=== PATIENT | female | born 1960 | race African-American/Black ===

== ENCOUNTER → 2019-10-04 | Outpatient (REF) | payer OTHER, MEDICARE ==
[2019-10-04 20:47] LABS: BASO % 0.5 % (0.0-1.0); EOS # 0.2 10^3/uL (0.0-0.5); EOS % 2.3 % (0.0-3.0); HEMATOCRIT 44.3 % (36.0-47.0); HEMOGLOBIN 13.6 g/dl (12.0-15.5); LYMPH # 2.6 10^3/uL (1.5-5.0); LYMPH % 40.5 % (24.0-44.0); MEAN CORPUSCULAR HEMOGLOBIN 29.8 pg (27.0-33.0); MEAN CORPUSCULAR HGB CONC 30.7 g/dl (32.0-36.5); MEAN CORPUSCULAR VOLUME 97.1 fl (80.0-96.0); MONO # 0.6 10^3/uL (0.0-0.8); MONO % 8.5 % (0.0-5.0); NEUTROPHILS # 3.1 10^3/uL (1.5-8.5); PLATELET COUNT, AUTOMATED 261 10^3/uL (150-450); RED BLOOD COUNT 4.56 10^6/uL (4.00-5.40); WHITE BLOOD COUNT 6.4 10^3/uL (4.0-10.0)
[2019-10-04 20:54] LABS: ALBUMIN 3.5 GM/DL (3.2-5.2); ALT/SGPT 49 U/L (12-78); BILIRUBIN,TOTAL 0.2 MG/DL (0.2-1.0); BLOOD UREA NITROGEN 11 MG/DL (7-18); CALCIUM LEVEL 9.5 MG/DL (8.5-10.1); CARBON DIOXIDE LEVEL 31 MEQ/L (21-32); CHLORIDE LEVEL 104 MEQ/L (98-107); CHOLESTEROL LEVEL 171 MG/DL (<200); CHOLESTEROL RISK RATIO 3.489 (<5); CREATININE FOR GFR 0.82 MG/DL (0.55-1.30); GLOMERULAR FILTRATION RATE > 60.0 (>51); GLUCOSE, FASTING 108 MG/DL (70-100); HDL CHOLESTEROL 49 MG/DL (>40); LDL CHOLESTEROL 93 MG/DL (<100); NON-HDL-C 122 MG/DL; POTASSIUM SERUM 4.1 MEQ/L (3.5-5.1); SODIUM LEVEL 140 MEQ/L (136-145); TOTAL PROTEIN 7.6 GM/DL (6.4-8.2); TRIGLYCERIDES LEVEL 145 MG/DL (<150)
[2019-10-04 21:25] LABS: MALB URINE SIEMENS 11.9 MG/L; MAU/CREAT RATIO 5.1 MCG/MG (0.0-30.0)
[2019-10-04 21:34] LABS: HEMOGLOBIN A1c 7.5 %
== END ==
LOC: M SFHCLERA 14:40
PROVIDERS: ATTEND Nurse Practitioner Family
DX: E11.9 Type 2 diabetes mellitus without complications (principal); E78.2 Mixed hyperlipidemia

== ENCOUNTER → 2020-02-24 | Outpatient (REF) | payer MEDICARE, OTHER ==
[2020-02-24 11:40] LABS: BASO % 0.4 % (0.0-1.0); EOS # 0.1 10^3/uL (0.0-0.5); EOS % 1.5 % (0.0-3.0); HEMATOCRIT 41.1 % (36.0-47.0); HEMOGLOBIN 12.6 g/dl (12.0-15.5); LYMPH # 2.4 10^3/uL (1.5-5.0); LYMPH % 34.2 % (24.0-44.0); MEAN CORPUSCULAR HEMOGLOBIN 30.1 pg (27.0-33.0); MEAN CORPUSCULAR HGB CONC 30.7 g/dl (32.0-36.5); MEAN CORPUSCULAR VOLUME 98.3 fl (80.0-96.0); MONO # 0.5 10^3/uL (0.0-0.8); MONO % 6.8 % (0.0-5.0); NEUTROPHILS % 56.7 % (36.0-66.0); PLATELET COUNT, AUTOMATED 298 10^3/uL (150-450); RED BLOOD COUNT 4.18 10^6/uL (4.00-5.40); WHITE BLOOD COUNT 7.1 10^3/uL (4.0-10.0)
[2020-02-24 11:47] LABS: BLOOD UREA NITROGEN 14 MG/DL (7-18); CALCIUM LEVEL 8.7 MG/DL (8.5-10.1); CARBON DIOXIDE LEVEL 33 MEQ/L (21-32); CHLORIDE LEVEL 104 MEQ/L (98-107); CHOLESTEROL LEVEL 182 MG/DL (<200); CHOLESTEROL RISK RATIO 2.888 (<5); CREATININE FOR GFR 0.85 MG/DL (0.55-1.30); GLOMERULAR FILTRATION RATE > 60.0 (>51); GLUCOSE, FASTING 180 MG/DL (70-100); HDL CHOLESTEROL 63 MG/DL (>40); LDL CHOLESTEROL 96 MG/DL (<100); NON-HDL-C 119 MG/DL; POTASSIUM SERUM 4.4 MEQ/L (3.5-5.1); SODIUM LEVEL 142 MEQ/L (136-145); TRIGLYCERIDES LEVEL 113 MG/DL (<150)
[2020-02-24 12:03] LABS: HEMOGLOBIN A1c 6.5 %
[2020-02-24 12:43] LABS: MALB URINE SIEMENS 11.8 MG/L; MAU/CREAT RATIO 5.2 MCG/MG (0.0-30.0)
== END ==
LOC: M SFHCLERA 09:43
PROVIDERS: ATTEND Family Medicine
DX: E11.9 Type 2 diabetes mellitus without complications (principal); E78.2 Mixed hyperlipidemia

== ENCOUNTER → 2020-05-26 | Outpatient (CLI) | payer OTHER ==
[2020-05-26 19:17] LABS: BASO % 0.3 % (0.0-1.0); EOS # 0.1 10^3/uL (0.0-0.5); EOS % 1.1 % (0.0-3.0); HEMATOCRIT 42.4 % (36.0-47.0); HEMOGLOBIN 13.2 g/dl (12.0-15.5); LYMPH # 2.6 10^3/uL (1.5-5.0); LYMPH % 37.5 % (24.0-44.0); MEAN CORPUSCULAR HEMOGLOBIN 30.6 pg (27.0-33.0); MEAN CORPUSCULAR HGB CONC 31.1 g/dl (32.0-36.5); MEAN CORPUSCULAR VOLUME 98.1 fl (80.0-96.0); MONO # 0.4 10^3/uL (0.0-0.8); MONO % 6.1 % (0.0-5.0); NEUTROPHILS # 3.8 10^3/uL (1.5-8.5); NEUTROPHILS % 54.9 % (36.0-66.0); PLATELET COUNT, AUTOMATED 314 10^3/uL (150-450); RED BLOOD COUNT 4.32 10^6/uL (4.00-5.40)
[2020-05-26 19:25] LABS: ALBUMIN 3.6 GM/DL (3.2-5.2); ALT/SGPT 44 U/L (12-78); BILIRUBIN,TOTAL 0.3 MG/DL (0.2-1.0); BLOOD UREA NITROGEN 13 MG/DL (7-18); CALCIUM LEVEL 9.8 MG/DL (8.5-10.1); CARBON DIOXIDE LEVEL 31 MEQ/L (21-32); CHLORIDE LEVEL 103 MEQ/L (98-107); CREATININE FOR GFR 0.95 MG/DL (0.55-1.30); GLOMERULAR FILTRATION RATE > 60.0 (>51); GLUCOSE, FASTING 131 MG/DL (70-100); LIPASE 122 U/L (73-393); POTASSIUM SERUM 4.2 MEQ/L (3.5-5.1); SODIUM LEVEL 139 MEQ/L (136-145); TOTAL PROTEIN 8.1 GM/DL (6.4-8.2)
== END ==
LOC: M LRY 14:33
PROVIDERS: ATTEND Family Medicine
DX: R10.9 Unspecified abdominal pain (principal)

== ENCOUNTER → 2020-06-13 | Outpatient (CLI) | payer OTHER ==
--- NOTE | 2020-06-20 15:17 | REP ---
LEFT KNEE SERIES CLINICAL: Nontraumatic knee pain. TECHNIQUE: AP, lateral, bilateral oblique, and sunrise views of the left knee. FINDINGS: Frontal radiographs demonstrate increased sclerosis to the tibial plateau with very subtle cortical irregularity at the medial tibiofemoral joint space. Lateral and sunrise views demonstrate spurring and subchondral sclerosis of the patella, as well as increased sclerosis along the anterior patella margin. There is suggestion for a small suprapatellar fusion on lateral radiograph. No acute fracture or dislocation. No obvious healed injury. IMPRESSION: 1. Age-related degenerative changes to the tibiofemoral joint space. 2. Moderate patellar tendinopathy and moderate degenerative changes at the patellofemoral joint space. MTDD
== END ==
LOC: M WUC 17:10
PROVIDERS: ATTEND Family Medicine
DX: M25.562 Pain in left knee (principal)

== ENCOUNTER → 2020-11-05 | Outpatient (CLI) | payer OTHER ==
[~2020-11-05] MED LIST: AMLO1TAB25; ASPI81TA26 PO; ATOR40TA75; CELE1CAP9; CHAN1PAK11; D3 H10002 PO; IRBE300T7; JANU100T; METF-838; NOVOINJ3; OMEG350C PO; OMEP-221; TRAZ-189 PO; TRES1INJ2; colon clenz PO
== END ==
LOC: M LABSMTC 08:42
PROVIDERS: ATTEND Anesthesiology
DX: Z01.812 Encounter for preprocedural laboratory examination (principal); Z20.822 Contact with and (suspected) exposure to COVID-19

== ENCOUNTER → 2020-11-06 | Outpatient (CLI) | payer OTHER ==
--- NOTE | 2020-11-06 17:26 | REPVR ---
PROCEDURE INFORMATION: Exam: US Duplex Left Lower Extremity Veins, Limited Exam date and time: 11/06/2020 5:03 PM Age: 60 years old Clinical indication: Pain; Leg, lower; Left; Additional info: Calf pain lle, labs after US TECHNIQUE: Imaging protocol: Real-time Duplex ultrasound of the Left Lower Extremity with 2-D richard scale, color Doppler flow and spectral waveform analysis with image documentation. Limited exam focused on the left lower extremity veins. COMPARISON: No relevant prior studies available. FINDINGS: Left deep veins: Unremarkable. The common femoral, femoral and popliteal veins are patent without thrombus. Normal compressibility, augmentation response and Doppler waveforms. Left superficial veins: Unremarkable. Saphenofemoral junction is patent without thrombus. Soft tissues: Unremarkable. IMPRESSION: No sonographic evidence of deep vein thrombosis. Electronically signed by: Joel Villalpando On 11/06/2020 17:26:08 PM
[2020-11-06 18:34] LABS: BLOOD UREA NITROGEN 11 MG/DL (7-18); CALCIUM LEVEL 8.9 MG/DL (8.5-10.1); CARBON DIOXIDE LEVEL 32 MEQ/L (21-32); CHLORIDE LEVEL 103 MEQ/L (98-107); CREATININE FOR GFR 0.92 MG/DL (0.55-1.30); GLOMERULAR FILTRATION RATE > 60.0 (>51); GLUCOSE, FASTING 118 MG/DL (70-100); MAGNESIUM LEVEL 1.9 MG/DL (1.8-2.4); POTASSIUM SERUM 4.1 MEQ/L (3.5-5.1); SODIUM LEVEL 141 MEQ/L (136-145)
[2020-11-06 18:39] LABS: HEMOGLOBIN A1c 6.1 %
== END ==
LOC: M RAD 16:52
PROVIDERS: ATTEND Family Medicine
DX: M79.662 Pain in left lower leg (principal); E11.9 Type 2 diabetes mellitus without complications; R25.2 Cramp and spasm; F33.1 Major depressive disorder, recurrent, moderate
CPT/HCPCS: 36415; 80048; 83036; 83735; 90834; 93971; G0463

== ENCOUNTER 2020-11-10 06:52 | Day surgery (SDC) | payer OTHER ==
[~2020-11-10] VITALS: Ht 167.6 cm; Wt 93.9 kg
--- OUTSIDE RECORDS SUMMARY | 2020-11-10 06:57 | CCD ---
Author Author [facility] Organization [facility] Address Unknown Phone Unavailable Care Team Providers Care Nuclear Plant Operator Name Role Phone Ervin Jacqui Unavailable PROBLEMS Type Condition ICD9-CM Code [id number] Code Onset Dates Condition S tatus W/U Status Risk SNOMED Code Notes Problem Arthritis M19.90 Active confirmed 7344780 Problem Depression with anxiety F41.8 Active confirmed 098831895 Problem Mixed hyperlipidemia E78.2 Active confirmed 140981765 Problem Type 2 diabetes mellitus without complications E11 .9 Active confirmed 298998681 Problem Insomnia, unspecified type G47.00 Active confirmed 193842632 Problem 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 Active confirmed 748569930 Problem 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 Z79.4 Activ e confirmed 395669302 Problem Major depressive disorder, recurrent, moderate F33 .1 Active confirmed 261542758 Problem FELIX (obstructive sleep apnea) G47.33 Active confirm ed 71610843 Problem Hypertension, unspecified type I10 Active confir med 43998866 Problem Arthritis of left knee M17.12 Active confirmed 8058560879859193 Problem History of colon cancer Z85.038 Active confirmed 491132237 Problem Cigarette nicotine dependence without complication F17.210 Active confirmed 74569141 ALLERGIES No Known Allergies ENCOUNTERS from 1960 to 2020-11-08 Encounter Location Date Provider Diagnosis [facility] [address] [address] 15 Oct, 2020 Jacqui Mueller Major depressive disorder, r ecurrent, moderate F33.1 IMMUNIZATIONS Vaccine Route Administration Date Status Imm: Influenza Pharmacy Given Unknown Jun 21, 2019 Ad ministered SOCIAL HISTORY Tobacco Use: Social History Observation Description Date Details (start date - stop date) Current Smoker Sex Assigned At : Social History Observation Description Sex Assigned At Unknown Education: Question Answer Notes Level of Education: High School Audit Question Answer Notes Total Score: 3 Interpretation: Alcohol Education Language: Question Answer Notes Languages spoken: Thai Jew: Question Answer Notes Jew 14 Islam Sexual Hx: Question Answer Notes Had sex in the last 12 months (vaginal, oral, or anal)? Yes Have you ever had an STD? Yes with Men only Use protection? No Herpes? Yes Drug and Alcohol Question Answer Notes Total Score: 0 Interpretation: No problems reported Alcohol Screening: Question Answer Notes Did you have a drink containing alcohol in the past year? Ye s Points 3 Interpretation Positive How often did you have six or more drinks on one occas ion in the past year? Never (0 points) How many drinks did you have on a typica l day when you were drinking in the past year? 3 or 4 (1 point) How often did you have a drink containing alcohol in t he past year? Two to four times a month (2 points) BMI Care Goal Follow-Up Question Answer Notes Above Normal BMI Follow-Up Dietary management educatio n, guidance, and counseling, Dietary needs education Tobacco Use: Question Answer Notes Are you a: current smoker REASON FOR REFERRAL No Information VITAL SIGNS No information MEDICATIONS Medication SIG (Take, Route, Frequency, Duration) Notes Start Da te End Date Status Blood Pressure Kit - as directed Daily Dx: I 10 for 999 days Jul, Active Albuterol Sulfate HFA 108 (90 Base) MCG/ACT 1 puff as needed Inhalation every 4 hrs for 30 Days Sep, Active Atorvastatin Calcium 40 MG 1 tablet Orally Once a day for 90 days Active Januvia 100 MG 1 tablet Orally Once a day for 90 days Active [place] 3 1000 MG 2 capsule Orally bid for 90 day(s) Active TraZODone HCl 100 MG 2 tablet at bedtime Orally Once a day for 90 day s Active Irbesartan 300 MG 1 tablet Orally Once a day for 90 days Active AmLODIPine Besylate 10 MG TAKE 1 TABLET EVERY DAY for 90 Active MetFORMIN HCl ER 500 MG TAKE 1 TABLET TWICE DAILY for 90 Active NovoLog Flexpen 100 UNIT/ML 10 units Subcutaneous three time s daily for 90 days Active Aspir-Low 81 MG 1 tablet Orally Once a day for 30 day(s) Active Diclofenac Sodium 1 % as directed to hands Transde rmal 2g up to Four times a day for 30 Days Sep, Active May Have - as directed Daily for 999 days Oct, Active Metformin HCl 1000 MG 1 tablet with a meal Orally Once a day for 30 day(s) Feb, Active Blood Glucose Test - as directed In Vitro once daily for 90 day( s) Oct, Active Chantix Starting Month Anatoly 0.5 MG X 11 & 1 MG X 42 as directed Orally as directed for 30 days Jul, Active Tresiba FlexTouch 100 UNIT/ML INJECT 35 UNITS SUBCUTAN EOUSLY EVERY EVENING for 85 Active Citalopram Hydrobromide 10 MG TAKE 1 TABLET EVERY DAY for 90 Active Celecoxib 200 MG 1 capsule with food Orally Once a day for 90 da y(s) Sep, Active PROCEDURES No Information RESULTS No Results REASON FOR VISIT No Information MEDICAL (GENERAL) HISTORY Type Description Date Medical History Diabetes Medical History HTN, goal 140/90 Medical History Anxiety/depression Medical History Insomnia Medical History Arthritis Medical History Hyperlipidemia Medical History FELIX Surgical History ankle Surgical History bilat foot surgery 2006 2009 Surgical History colon surgery 2017 Hospitalization History surgery Goals Section No Information Health Concerns No Information MEDICAL EQUIPMENT No Information MENTAL STATUS No Information FUNCTIONAL STATUS No Information ASSESSMENTS Encounter Date Diagnosis Assessment Notes Treatment Notes Treatm ent Clinical Notes Oct, Major depressive disorder, recurrent, moderate ( ICD-10 - F33.1) Aliya attended scheduled follow up appointment. Aliya presents for treatment with increased depressive symptoms and reports history of depression. Aliya denies SI, SH, HI, AVH. Aliya is active and engaged throughout session. Discussed presenting symptoms and efforts to manage identified symptoms, discussed positive future goals. Aliya is scheduled fdor follow up appointment 11/27/20 at 1pm via ZOOM, aware to call for earlier appointment if needed. email: [email or web address] Aliya is aware to call for earlier appointment if needed and to use ER for mental health emergencies. PLAN OF TREATMENT Medication Medication Name Sig Start Date Stop Date NovoLog Flexpen 100 UNIT/ML 10 units Subcutaneous three time s daily for 90 days Tresiba FlexTouch 100 UNIT/ML INJECT 35 UNITS SUBCUTAN EOUSLY EVERY EVENING for 85 MetFORMIN HCl ER 500 MG TAKE 1 TABLET TWICE DAILY for 90 AmLODIPine Besylate 10 MG TAKE 1 TABLET EVERY DAY for 90 Irbesartan 300 MG 1 tablet Orally Once a day for 90 days Blood Pressure Kit - as directed Daily Dx: I 10 for 999 days Jul,January Have - as directed Daily for 999 days Oct, TraZODone HCl 100 MG 2 tablet at bedtime Orally Once a day for 9 0 days Chantix Starting Month Anatoly 0.5 MG X 11 & 1 MG X 42 as directed Orally as directed for 30 days Jul, Citalopram Hydrobromide 10 MG TAKE 1 TABLET EVERY DAY for 90 Treatment Notes Assessment Notes Clinical Notes Major depressive disorder, recurrent, moderate Aliya attended scheduled follow up appointment. Aliya presents for treatment with increased depressive symptoms and reports history of depression. Aliya denies SI, SH, HI, AVH. Aliya is active and engaged throughout session. Discussed presenting symptoms and efforts to manage identified symptoms, discussed positive future goals.Aliya is scheduled fdor follow up appointment 11/27/20 at 1pm via ZOOM, aware to call for earlier appointment if needed.email: [email or web address] is aware to call for earlier appointment if needed and to use ER for mental health emergencies. Next Appt Details Provider Name:Alanis Meek, 2020-11-14 10:00:00 AM, [address] [place], [address], Provider Name:Jacqui Mueller, 2020-11-27 01:00:00 PM, [address], [address] Insurance Providers Payer Name Payer Address Payer Phone Insured Name Patient Relati onship to Insured Coverage Start Date Coverage End Date SHELIA [place] [address] [address] [facility] [phone] ALIYA MCGUIRE self
--- OUTSIDE RECORDS SUMMARY | 2020-11-10 06:58 | CCD ---
Author Author [facility] Organization [facility] Address Unknown Phone Unavailable Care Team Providers Care Furniture Servicer Name Role Phone Pratik Bowens Unavailable PROBLEMS Type Condition ICD9-CM Code [id number] Code Onset Dates Condition S tatus SNOMED Code Notes Problem Arthritis M19.90 Active 0666153 Problem Depression with anxiety F41.8 Active 03864296 6 Problem Mixed hyperlipidemia E78.2 Active 894331262 Problem Type 2 diabetes mellitus without complications E11 .9 Active 268992165 Problem Insomnia, unspecified type G47.00 Active 46841 2001 Problem 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 Active 414762254 Problem shelter (current) use of insulin Z79.4 Activ e 728429068 Problem Major depressive disorder, recurrent, moderate F33 .1 Active 238395059 Problem FELIX (obstructive sleep apnea) G47.33 Active 78 977578 Problem Hypertension, unspecified type I10 Active 5 4860896 Problem Arthritis of left knee M17.12 Active 403111628 1578391 Problem History of colon cancer Z85.038 Active 84569080 9 Problem Cigarette nicotine dependence without complication F17.210 Active 09892984 ALLERGIES No Known Allergies ENCOUNTERS from 1960 to 2020-10-20 Encounter Location Date Provider Diagnosis [facility] [address] [place] [address], Pratik Bowens Insomnia, unspecified type G47.00 IMMUNIZATIONS Vaccine Route Administration Date Status Influenza (Pharmacy Given) Unknown Jun 21, 2019 Admin istered SOCIAL HISTORY Tobacco Use: Social History Observation Description Date Details (start date - stop date) Current Smoker Sex Assigned At : Social History Observation Description Sex Assigned At Unknown Education: Question Answer Notes Level of Education: High School Audit Question Answer Notes Total Score: 3 Interpretation: Alcohol Education Language: Question Answer Notes Languages spoken: Persian Restorationism: Question Answer Notes Restorationism 14 Quaker Sexual Hx: Question Answer Notes Had sex [...] Notes Start Da te End Date Status NovoLog Flexpen 100 UNIT/ML 10 units Subcutaneous three time s daily for 90 days Active Atorvastatin Calcium 40 MG 1 tablet Orally Once a day for 90 days Active Tresiba FlexTouch 100 UNIT/ML 40 units Subcutaneous before b edtime for 90 days Active Metformin HCl 1000 MG 1 tablet with a meal Orally Once a day for 30 day(s) Feb, Active Irbesartan 300 MG 1 tablet Orally Once a day for 90 days Active Januvia 100 MG 1 tablet Orally Once a day for 90 days Active MetFORMIN HCl ER 500 MG TAKE 1 TABLET TWICE DAILY for 90 Active Blood Glucose Test - as directed In Vitro once daily for 90 day( s) Oct, Active AmLODIPine Besylate 10 MG TAKE 1 TABLET EVERY DAY for 90 Active Celecoxib 200 MG 1 capsule with food Orally Once a day for 90 da y(s) Sep, Active TraZODone HCl 100 MG 2 tablet at bedtime Orally Once a day for 90 day s Active Diclofenac Sodium 1 % as directed to hands Transde rmal 2g up to Four times a day for 30 Days Sep, Active Blood Pressure Kit - as directed Daily Dx: I 10 for 999 days Jul, Active Chantix Starting Month Anatoly 0.5 MG X 11 & 1 MG X 42 as directed Orally as directed for 30 days Jul, Active Albuterol Sulfate HFA 108 (90 Base) MCG/ACT 1 puff as needed Inhalation every 4 hrs for 30 Days Sep, Active Citalopram Hydrobromide 10 MG TAKE 1 TABLET EVERY DAY for 90 Active Aspir-Low 81 MG 1 tablet Orally Once a day for 30 day(s) Active [place] 3 1000 MG 2 capsule Orally bid for 90 day(s) Active PROCEDURES No Information RESULTS No Results REASON FOR VISIT Refill MEDICAL (GENERAL) HISTORY Type Description Date Medical History Diabetes Medical History HTN, goal 140/90 Medical History Anxiety/depression Medical History Insomnia Medical History Arthritis Medical History Hyperlipidemia Medical History FELIX Surgical History ankle Surgical History bilat foot surgery 2006 2009 Surgical History colon surgery 2016 Hospitalization History surgery Goals Section No Information Health Concerns No Information MEDICAL EQUIPMENT No Information MENTAL STATUS No Information FUNCTIONAL STATUS No Information ASSESSMENTS Encounter Date Diagnosis Assessment Notes Treatment Notes Treatm ent Clinical Notes Sep, Insomnia, unspecified type (ICD-10 - G47.00) PLAN OF TREATMENT Medication Medication Name Sig Start Date Stop Date AmLODIPine Besylate 10 MG TAKE 1 TABLET EVERY DAY for 90 Citalopram Hydrobromide 10 MG TAKE 1 TABLET EVERY DAY for 90 Chantix Starting Month Anatoly 0.5 MG X 11 & 1 MG X 42 as directed Orally as directed for 30 days Jul, MetFORMIN HCl ER 500 MG TAKE 1 TABLET TWICE DAILY for 90 Blood Pressure Kit - as directed Daily Dx: I 10 for 999 days Jul, TraZODone HCl 100 MG 2 tablet at bedtime Orally Once a day for 9 0 days Irbesartan 300 MG 1 tablet Orally Once a day for 90 days Next Appt Details Provider Name:Jacqui Mueller, 2020-11-06 01:00:00 PM, [address] [address], [place], [address] Provider Name:Pratik Bowens, 2020-11-06 02:00:00 PM, [address] [place], [address], Provider Name:Alanis Meek, 2020-11-14 10:00:00 AM, [address] [place], [address], Insurance Providers Payer Name Payer Address Payer Phone Insured Name Patient Relati onship to Insured Coverage Start Date Coverage End Date [place]ASH[place]ee [place] [address] [address] [facility] [id number] THOMAS NAPIER
--- OUTSIDE RECORDS SUMMARY | 2020-11-10 06:58 | CCD ---
Author Author [facility] Organization [facility] Address Unknown Phone Unavailable Care Team Providers Care Bobbin Presser Name Role Phone Pratik Bowens Unavailable PROBLEMS Type Condition ICD9-CM Code [id number] Code Onset Dates Condition S tatus SNOMED Code Notes Problem Arthritis M19.90 Active 5726831 Problem Depression with anxiety F41.8 Active 69543543 6 Problem Mixed hyperlipidemia E78.2 Active 778505176 Problem Type 2 diabetes mellitus without complications E11 .9 Active 769194210 Problem Insomnia, unspecified type G47.00 Active 27356 2001 Problem 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 Active 441142639 Problem [facility] (current) use of insulin Z79.4 Activ e 324653442 Problem Major depressive disorder, recurrent, moderate F33 .1 Active 810248200 Problem FELIX (obstructive sleep apnea) G47.33 Active 78 740088 Problem Hypertension, unspecified type I10 Active 5 1649269 Problem Arthritis of left knee M17.12 Active 751734842 2406011 Problem History of colon cancer Z85.038 Active 42716922 9 Problem Cigarette nicotine dependence without complication F17.210 Active 16464040 ALLERGIES No Known Allergies ENCOUNTERS from 1960 to 2020-09-05 Encounter Location Date Provider Diagnosis [facility] [address] [place] [address] Aug, Pratik Bowens IMMUNIZATIONS Vaccine Route Administration Date Status Influenza [...] Education Language: Question Answer Notes Languages spoken: Khmer Shinto: Question Answer Notes Shinto 14 Jew Sexual Hx: Question Answer Notes Had sex [...] Once a day for 90 days Active Metformin HCl 1000 MG 1 tablet with a meal Orally Once a day for 30 day(s) Feb, Active Tresiba FlexTouch 100 UNIT/ML 40 units Subcutaneous before b edtime for 90 days Active Aspir-Low 81 MG 1 tablet Orally Once a day for 30 day(s) Active Januvia 100 MG 1 tablet Orally Once a day for 90 days Active Diclofenac Sodium 1 % as directed to hands Transde rmal 2g up to Four times a day for 30 Days Sep, Active AmLODIPine Besylate 10 MG 1 tablet Orally Once a day for 90 days Active Albuterol Sulfate HFA 108 (90 Base) MCG/ACT 1 puff as needed Inhalation every 4 hrs for 30 Days Sep, Active Celecoxib 200 MG 1 capsule with food Orally Once a day for 90 da y(s) Sep, Active TraZODone HCl 100 MG 2 tablet at bedtime Orally Once a day for 90 day s Active Blood Pressure Kit - as directed Daily Dx: I 10 for 999 days Jul, Active Chantix Starting Month Anatoly 0.5 MG X 11 & 1 MG X 42 as directed Orally as directed for 30 days Jul, Active Irbesartan 300 MG 1 tablet Orally Once a day for 90 days Active Blood Glucose Test - as directed In Vitro once daily for 90 day( s) Oct, Active Citalopram Hydrobromide 10 MG 1 tablet Orally Once a day for 90 day(s) Sep, Active [place] 3 1000 MG 2 capsule Orally bid for 90 day(s) Active PROCEDURES No Information RESULTS No Results REASON FOR VISIT transfer paperwork MEDICAL (GENERAL) HISTORY Type Description Date Medical [...] No Information FUNCTIONAL STATUS No Information ASSESSMENTS No Information PLAN OF TREATMENT Medication Medication Name Sig Start Date Stop Date Blood Pressure Kit - as directed Daily Dx: I 10 for 999 days Jul, Chantix Starting Month Anatoly 0.5 MG X 11 & 1 MG X 42 as directed Orally as directed for 30 days Jul, Next Appt Details Provider Name:Alanis Fantasma, 2020-09-11 02:20:00 PM, [address] [place], [address], Provider Name:Jacqui Mueller, 2020-09-26 01:00:00 PM, [address], [address] Provider Name:Pratik Bowens, 2020-11-06 02:00:00 PM, [address] [place], [address], Insurance Providers Payer Name Payer Address Payer Phone Insured Name Patient Relati onship to Insured Coverage Start Date Coverage End Date SHELIA [place] [address] [address] [facility] [phone] [phone] THOMAS MCGUIRE
--- OUTSIDE RECORDS SUMMARY | 2020-11-10 06:58 | CCD ---
Author Author [facility] Organization [facility] Address Unknown Phone Unavailable Care Team Providers Care Yard Supervisor Name Role Phone Pratik Bowens Unavailable PROBLEMS Type Condition ICD9-CM Code [id number] Code Onset Dates Condition S tatus SNOMED Code Notes Problem Arthritis M19.90 Active 9484151 Problem Depression with anxiety F41.8 Active 41409865 6 Problem Mixed hyperlipidemia E78.2 Active 831119248 Problem Type 2 diabetes mellitus without complications E11 .9 Active 898565343 Problem Insomnia, unspecified type G47.00 Active 18761 2001 Problem 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 Active 012337386 Problem long-term (current) use of insulin Z79.4 Activ e 142441380 Problem Major depressive disorder, recurrent, moderate F33 .1 Active 726950330 Problem FELIX (obstructive sleep apnea) G47.33 Active 78 649389 Problem Hypertension, unspecified type I10 Active 5 1663822 Problem Arthritis of left knee M17.12 Active 921542859 4437844 Problem History of colon cancer Z85.038 Active 23619681 9 Problem Cigarette nicotine dependence without complication F17.210 Active 96627756 ALLERGIES No Known Allergies ENCOUNTERS from 1960 to 2020-10-19 Encounter Location Date Provider Diagnosis [facility] [place] [address] Sep Pratik Bowens Hypertension, unspecified type I10 IMMUNIZATIONS Vaccine Route Administration Date Status Influenza [...] Education Language: Question Answer Notes Languages spoken: Bulgarian Rastafari: Question Answer Notes Rastafari 14 Zoroastrian Sexual Hx: Question Answer Notes Had sex [...] Once a day for 30 day(s) Active Elliott 3 1000 MG 2 capsule Orally bid for 90 day(s) Active PROCEDURES No Information RESULTS No Results REASON FOR VISIT rx MEDICAL (GENERAL) HISTORY Type Description Date Medical [...] Treatment Notes Treatm ent Clinical Notes Sep, Hypertension, unspecified type (ICD-10 - I10) PLAN OF TREATMENT Medication Medication Name Sig [...] Details Provider Name:Jacqui Mueller, 2020-11-06 01:00:00 PM, [address] [address], [place], [address] Provider Name:Pratik Bowens, 2020-11-06 02:00:00 PM, [address] [place], [address], Provider Name:Alanis Meek, 2020-11-14 10:00:00 AM, [address] [place], [address], Insurance Providers Payer Name Payer Address Payer Phone Insured Name Patient Relati onship to Insured Coverage Start Date Coverage End Date SHE[place]IA [place] [address] [address] [facility] [phone] THOMAS NAPIER
--- OUTSIDE RECORDS SUMMARY | 2020-11-10 06:58 | CCD | Continuity of Care Document ---
Author Author Aliya HWANG [facility] Organization Unknown Address [address] [place] [address], [address] [place] [address] Phone [phone] Care Team Providers Care Cloth Piecer Name Role Phone Gogo Pratik Dao AUTM [phone] Problems Active Problems Provider Date Essential hypertension Onset: 09/26/2020 Social History Type Date Description Comments Sex Unknown ETOH Use 3 A Week Tobacco Use Start: Unknown Light tobacco smoker (10 or fewe r cigarettes/day) 5 Cigs daily Tobacco Use Start: Unknown Report Cessation Counseling Was Provided Allergies, Adverse Reactions, Alerts Description No Known Drug Allergies Medications Active Medications SIG Qnty Indications Ordering Provide r Date Suprep Bowel Prep Kit 17.5-3.13-1.6GM/177ML Solution take per doctor's bowel prep instructions. 354ml Z12.1 1 Zackery Cooper MD 10/11/[address] take 4 tabs by mouth prior to procedure per instructions. 4tabs Z12.11 Zackery Cooper MD 10/11/2020 Miralax 17GM/Scoop Powder take 17 grams by mouth once daily. 510units K59.00 Zackery Cooper MD 10/11/2020 Celebrex 200mg Capsules 1 by mouth every day prn Unknown Vitamin D 2000Unit Tablets 1 tab by mouth every day Unknown Omeprazole 20mg Capsules DR take 1 capsule by mouth once daily. 30caps Unknown Tresiba 100Unit/ML Solution 40 units at hs Unknown Novolog Penfill 100U nit/ML Solution Cartridge 10 units with each meal Unknown Amlodipine Besylate 10mg Tablets 1 by mouth every day Unknown Trazodone HCL 100mg Tablets 2 at hs Unknown Januvia 100mg Tablets 1 by mouth every day Unknown Irbesartan 300mg Tablets 1 Da shan Unknown Metformin HCL 500mg Tablets 1 Daily Unknown Atorvastatin Calcium 40mg Tablets 1 by mouth every day Unknown Centrum Adults Tablets Daily Unknown Colon Clenz 1 Daily Unknown Aspirin [address] take 1 tab by mouth daily Unknown [place] 3 1000mg Capsules 2 by mouth twice daily Unknown Immunizations Description No Information Available Vital Signs Date Vital Result Comment 10/11/2020 2:13pm BP Systolic 122 mmHg BP Diastolic 82 mmHg Height 66 inches 5'6" Weight 214.00 lb BMI (Body Mass Index) 34.5 kg/m2 [place] Body Weight 130 lb Weight 97.070 kg BSA (Body Surface Area) 2.06 m2 Results Description No Information Available Procedures Description No Information Available Medical Devices Description No Information Available Encounters Description No Information Available Assessments Date Code Description Provider 10/11/2020 Z12.11 Encounter for screening for molly gnant neoplasm of colon Isabella Ashrafkyleigh [facility] 10/11/2020 Z86.010 Personal history of colonic poly ps Isabella Nuñezhafsa [facility] 10/11/2020 Z80.0 Family history of malignant neop lasm of digestive organs Isabella NuñezILDEFONSO pereyra 10/11/2020 K59.00 Constipation, unspecified Meliss anju Nuñezhafsa [facility] 10/11/2020 K21.9 Gastro-esophageal reflux disease without esophagitis Isabella Ashrafkyleigh [facility] Plan of Treatment 10/11/2020 - Isabella Price Key [facility]* Z12.11 Encounter for screening for malignant neoplasm of colon * Z86.010 Personal history of colonic polyps * Z80.0 Family history of malignant neoplasm of digestive organs * K59.00 Constipation, unspecified * K21.9 Gastro-esophageal reflux disease without esophagitis * * New Medication:* Suprep Bowel Prep Kit 17.5-3.13-1.6 GM/177ML * Dulcolax 5 mg * New Orders:* Colonoscopy, Ordered: 10/11/20 * Comments:* Will arrange for upper endoscopy and colonoscopy. Reviewed risks and benefits of the procedures, as well as other options, with the patient. Prep for this procedure was discussed with patient, including risks and side effects associated with the prep. Patient verbalized understanding of all of the above and is in agreement to proceed. Patient will seek medical attention for any acute changes. Will monitor. * Follow up:* As scheduled, sooner if needed. Functional Status Description No Information Available Mental Status Description No Information Available Referrals Refer to Reason for Referral Status Appt Date Marcio Azul M.D. colo consult, has not had r epeat colo since GI cancer removed in 2017, sent records release Created 10/11/[address] [place] [address], [address] [place] [address] [phone]
--- OUTSIDE RECORDS SUMMARY | 2020-11-10 06:58 | CCD ---
Author Author [facility] Organization [facility] Address Unknown Phone Unavailable Care Team Providers Care Consulting Hr Professional Name Role Phone Pratik Bowens Unavailable PROBLEMS Type Condition ICD9-CM Code [id number] Code Onset Dates Condition S tatus W/U Status Risk SNOMED Code Notes Problem Arthritis M19.90 Active confirmed 3256379 Problem Depression with anxiety F41.8 Active confirmed 247338887 Problem Mixed hyperlipidemia E78.2 Active confirmed 040326855 Problem Type 2 diabetes mellitus without complications E11 .9 Active confirmed 859412821 Problem Insomnia, unspecified type G47.00 Active confirmed 716657739 Problem 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 Active confirmed 170759655 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 Activ e confirmed 384755619 Problem Major depressive disorder, recurrent, moderate F33 .1 Active confirmed 781365833 Problem FELIX (obstructive sleep apnea) G47.33 Active confirm ed 80021439 Problem Hypertension, unspecified type I10 Active confir med 50767755 Problem Arthritis of left knee M17.12 Active confirmed 4828172073297198 Problem History of colon cancer Z85.038 Active confirmed 565791814 Problem Cigarette nicotine dependence without complication F17.210 Active confirmed 97749203 ALLERGIES No Known Allergies ENCOUNTERS from 1960 to 2020-11-08 Encounter Location Date Provider Diagnosis [facility] [address] [place] [address], Pratik Bowens IMMUNIZATIONS Vaccine Route Administration Date Status Imm: [...] Education Language: Question Answer Notes Languages spoken: Salvadorean Episcopalian: Question Answer Notes Episcopalian 14 Moravian Sexual Hx: Question Answer Notes Had sex [...] Once a day for 90 days Active [place] 3 1000 MG 2 capsule Orally bid [...] Information RESULTS No Results REASON FOR VISIT US MEDICAL (GENERAL) HISTORY Type Description Date Medical [...] Dx: I 10 for 999 days Jul, May Have - as directed Daily for 999 days Oct, TraZODone HCl 100 MG 2 tablet at bedtime Orally Once a day for 9 0 days Chantix Starting Month Anatoly 0.5 MG X 11 & 1 MG X 42 as directed Orally as directed for 30 days Jul, Citalopram Hydrobromide 10 MG TAKE 1 TABLET EVERY DAY for 90 Next Appt Details Provider Name:Alanis Meek, 2020-11-14 10:00:00 AM, [address] [place], [address], Provider Name:Jacqui Mueller, 2020-11-27 01:00:00 PM, [address], [address], [place], [address] Insurance Providers Payer Name Payer Address Payer Phone Insured Name Patient Relati onship to Insured Coverage Start Date Coverage End Date BASHIR NAN [address] [address] [facility] [phone] THOMAS NAPIER self
--- OUTSIDE RECORDS SUMMARY | 2020-11-10 06:58 | CCD ---
Author Author [facility] Organization [facility] Address Unknown Phone Unavailable Care Team Providers Care Saw Sharpener Name Role Phone Pratik Bowens Unavailable PROBLEMS Type Condition ICD9-CM Code [id number] Code Onset Dates Condition S tatus SNOMED Code Notes Problem Arthritis M19.90 Active 4667683 Problem Depression with anxiety F41.8 Active 34701213 6 Problem Mixed hyperlipidemia E78.2 Active 703517198 Problem Type 2 diabetes mellitus without complications E11 .9 Active 545713672 Problem Insomnia, unspecified type G47.00 Active 17718 2000 Problem 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 Active 421858245 Problem 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 Z79.4 Activ e 185832247 Problem Major depressive disorder, recurrent, moderate F33 .1 Active 135326559 Problem FELIX (obstructive sleep apnea) G47.33 Active 78 806074 Problem Hypertension, unspecified type I10 Active 5 7601668 Problem Arthritis of left knee M17.12 Active 040795687 1933342 Problem History of colon cancer Z85.038 Active 93596829 9 Problem Cigarette nicotine dependence without complication F17.210 Active 27789793 ALLERGIES No Known Allergies ENCOUNTERS from 1960 to 2020-09-05 Encounter Location Date Provider Diagnosis [facility] [address] [place] [address] Jul, 2020 Pratik Bowens Hypertension, unspecified type I10 ; Enc ounter for immunization Z23 ; Arthritis of left knee M17.12 ; History of colon cancer Z85.038 ; Encounter for screening mammogram for malignant neoplasm of breast Z12.31 ; Screening for cervical cancer Z12.4 and Cigarette nicotine dependence without complication F17.210 IMMUNIZATIONS Vaccine Route Administration Date Status Influenza [...] Education Language: Question Answer Notes Languages spoken: Tongan Amish: Question Answer Notes Amish 14 Quaker Sexual Hx: Question Answer Notes [...] REASON FOR REFERRAL No Information VITAL SIGNS Weight 211 lbs Jul, Height 66 in Jul, BMI 34.05 kg/m2 Jul, Heart Rate 75 /min Jul, Respiratory Rate 18 /min Jul, Temperature 97.2 degrees Fahrenheit Jul, Oximetry 99 Jul, Blood pressure systolic 146 mm Hg Jul, Blood pressure diastolic 83 mm Hg Jul, MEDICATIONS Medication SIG (Take, Route, Frequency, Duration) [...] a day for 90 day(s) Sep, Active [place] 3 1000 MG 2 capsule Orally bid for 90 day(s) Active PROCEDURES No Information RESULTS No Results REASON FOR VISIT follow up MEDICAL (GENERAL) HISTORY Type Description Date Medical [...] Notes Treatment Notes Treatm ent Clinical Notes Jul, Hypertension, unspecified type (ICD-10 - I10) Recommend check BP at home. Sending in for a BP cuff at home. May not be covered by insurance. Jul, Encounter for immunization (ICD-10 - Z23) Already had flu shot this season. Jul, Arthritis of left knee (ICD-10 - M17.12) Refer to PT. Patient has pain in knees. Discussed stretching to do at home. Would like to try PT. Can send to ortho if no relief with PT. Jul, History of colon cancer (ICD-10 - Z85.038) Refer to GI. Patient needs to discuss repeat/ monitoring colonoscopy. Jul, Encounter for screening mamm ogram for malignant neoplasm of breast (ICD-10 - Z12.31) Mammogram, provider order, patient will call to make appt. Jul, Screening for cervical cancer (ICD-10 - Z12.4) refer to [facility] for pap smear. Jul, Cigarette nicotine dependenc e without complication (ICD-10 - F17.210) Start chantix for quit smoking. Reviewed side effects. PLAN OF TREATMENT Medication Medication Name Sig Start Date Stop Date Blood Pressure Kit - as directed Daily Dx: I 10 for 999 days Jul, Chantix Starting Month Anatoly 0.5 MG X 11 & 1 MG X 42 as directed Orally as directed for 30 days Jul, Treatment Notes Assessment Notes Clinical Notes Hypertension, unspecified type Recommend check BP at home. Sending in for a BP cuff at home. May not be covered by insurance. Encounter for immunization Already had f roger shot this season. Arthritis of left knee Refer to PT. Ana Maria ent has pain in knees. Discussed stretching to do at home. Would like to try PT. Can send to ortho if no relief with PT. History of colon cancer Refer to GI. Pat ient needs to discuss repeat/ monitoring colonoscopy. Encounter for screening mammogram for malignant neoplasm of breast Mammogram, provider order, patient will call to make appt. Screening for cervical cancer refer to [facility] for pap smear. Cigarette nicotine dependence without complication Start chantix for quit smoking. Reviewed side effects. Treatment Notes Test Name Order Date [facility] Shashi Screening Bilateral (Ultrasound if Indicated ) (3D Mammo) 2020-09-05 Next Appt Details Follow up with PCP in 3 mths/ Transfer c are Reason: Provider Name:Alanis Meek, 2020-09-11 02:20:00 PM, [address] [place], [address], Provider Name:Jacqui Mueller, 2020-09-26 01:00:00 PM, [address], [address] Provider Name:Pratik Bowens, 2020-11-06 02:00:00 PM, [address] [place], [address], Insurance Providers Payer Name Payer Address Payer Phone Insured Name Patient Relati onship to Insured Coverage Start Date Coverage End Date [place]IA [place] [address] [address] [facility] [id number] THOMAS NAPIER
--- OUTSIDE RECORDS SUMMARY | 2020-11-10 06:58 | CCD ---
Author Author [facility] Organization [facility] Address Unknown Phone Unavailable Care Team Providers Care Biofuels Technology Development Manager Name Role Phone Pratik Bowens Unavailable PROBLEMS Type Condition ICD9-CM Code [id number] Code Onset Dates Condition S tatus SNOMED Code Notes Problem Arthritis M19.90 Active 1515407 Problem Depression with anxiety F41.8 Active 05677617 6 Problem Mixed hyperlipidemia E78.2 Active 690257019 Problem Type 2 diabetes mellitus without complications E11 .9 Active 412789604 Problem Insomnia, unspecified type G47.00 Active 42159 2001 Problem 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 Active 146966844 Problem [facility] (current) use of insulin Z79.4 Activ e 564557499 Problem Major depressive disorder, recurrent, moderate F33 .1 Active 253515637 Problem FELIX (obstructive sleep apnea) G47.33 Active 78 125493 Problem Hypertension, unspecified type I10 Active 5 4353737 Problem Arthritis of left knee M17.12 Active 125234198 7902351 Problem History of colon cancer Z85.038 Active 08975595 9 Problem Cigarette nicotine dependence without complication F17.210 Active 49847308 ALLERGIES No Known Allergies ENCOUNTERS from 1960 to 2020-10-02 Encounter Location Date Provider Diagnosis [facility] [address] [place] [address] Sep, Pratik Bowens FELIX (obstructive sleep apnea) G47.33 IMMUNIZATIONS Vaccine Route Administration Date Status Influenza [...] Education Language: Question Answer Notes Languages spoken: Bengali Episcopal: Question Answer Notes Episcopal 14 Episcopal Sexual Hx: Question Answer Notes Had sex [...] Notes Start Da te End Date Status Atorvastatin Calcium 40 MG 1 tablet Orally Once a day for 90 days Active [place] 3 1000 MG 2 capsule Orally bid for 90 day(s) Active Tresiba FlexTouch 100 UNIT/ML 40 units Subcutaneous before b edtime for 90 days Active Chantix Starting Month Anatoly 0.5 MG X 11 & 1 MG X 42 as directed Orally as directed for 30 days Jul, Active NovoLog Flexpen 100 UNIT/ML 10 units Subcutaneous three time s daily for 90 days Active Januvia 100 MG [...] day for 90 da y(s) Sep, Active Metformin HCl 1000 MG 1 tablet with a meal Orally Once a day for 30 day(s) Feb, Active Diclofenac Sodium 1 % as directed to hands Transde rmal 2g up to Four times a day for 30 Days Sep, Active Irbesartan 300 MG 1 tablet Orally Once a day for 90 days Active TraZODone HCl 100 MG 2 tablet at bedtime Orally Once a day for 90 day s Active Albuterol Sulfate HFA 108 (90 Base) MCG/ACT 1 puff as needed Inhalation every 4 hrs for 30 Days Sep, Active Citalopram Hydrobromide 10 MG TAKE 1 TABLET EVERY DAY for 90 Active Aspir-Low 81 MG 1 tablet Orally Once a day for 30 day(s) Active Blood Pressure Kit - as directed Daily Dx: I 10 for 999 days Jul, Active PROCEDURES No Information RESULTS No Results REASON FOR VISIT Referral MEDICAL (GENERAL) HISTORY Type Description Date Medical [...] Treatment Notes Treatm ent Clinical Notes Sep, FELIX (obstructive sleep apnea) (ICD-10 - G47.33) PLAN OF TREATMENT Medication Medication Name Sig [...] Dx: I 10 for 999 days Jul, Next Appt Details Provider Name:Alanis Meek, 2020-10-24 02:40:00 PM, [address] [place], [address], Provider Name:Pratik Bowens, 2020-11-06 02:00:00 PM, [address] [place], [address], Insurance Providers Payer Name Payer Address Payer Phone Insured Name Patient Relati onship to Insured Coverage Start Date Coverage End Date SHELIA [place] [facility] [id number] [place] [phone] THOMAS NAPIER
--- OUTSIDE RECORDS SUMMARY | 2020-11-10 06:58 | CCD ---
Author Author [facility] Organization [facility] Address Unknown Phone Unavailable Care Team Providers Care Manager Express Name Role Phone Jacqui Mueller Unavailable PROBLEMS Type Condition ICD9-CM Code [id number] Code Onset Dates Condition S tatus SNOMED Code Notes Problem Arthritis M19.90 Active 7419980 Problem Depression with anxiety F41.8 Active 88148989 6 Problem Mixed hyperlipidemia E78.2 Active 641377706 Problem Type 2 diabetes mellitus without complications E11 .9 Active 462851145 Problem Insomnia, unspecified type G47.00 Active 54859 2001 Problem 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 Active 596379050 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 Activ e 550276226 Problem Major depressive disorder, recurrent, moderate F33 .1 Active 705210796 Problem FELIX (obstructive sleep apnea) G47.33 Active 78 921507 Problem Hypertension, unspecified type I10 Active 5 2644966 Problem Arthritis of left knee M17.12 Active 804923709 6399764 Problem History of colon cancer Z85.038 Active 93927237 9 Problem Cigarette nicotine dependence without complication F17.210 Active 50044200 ALLERGIES No Known Allergies ENCOUNTERS from 1960 to 2020-08-30 Encounter Location Date Provider Diagnosis [facility] [address] [address] Aug, 2020 Jacqui Mueller Major depressive disorder, r ecurrent, moderate F33.1 IMMUNIZATIONS Vaccine Route Administration Date Status Influenza [...] Education Language: Question Answer Notes Languages spoken: Kinyarwanda Latter-Day: Question Answer Notes Latter-Day 14 Yazdanism Sexual Hx: Question Answer Notes Had sex in the last 12 months (vaginal, oral, or anal)? Yes Have you ever had an STD? Yes with Men only Use protection? No Herpes? Yes Drug and Alcohol Question Answer Notes Interpretation: No problems reported Total Score: 0 Alcohol Screening: Question Answer Notes Did you [...] a day for 90 day(s) Sep, Active [place] 3 1000 MG 2 capsule Orally bid [...] Notes Treatment Notes Treatm ent Clinical Notes Aug, Major depressive disorder, recurrent, moderate ( ICD-10 - F33.1) Aliya attended scheduled follow up appointment. Aliya presents for treatment with increased depressive symptoms and reports history of depression. Aliya denies SI, SH, HI, AVH. Aliya is active and engaged throughout session. Discussed presenting symptoms and efforts to manage identified symptoms, discussed boundaries and self care. Aliya is scheduled for follow up appointment 09/26/2020 at 1PM. Aliya is aware to call for earlier [...] Jul, Treatment Notes Assessment Notes Clinical Notes Major depressive disorder, recurrent, moderate Aliya attended scheduled follow up appointment. Aliya presents for treatment with increased depressive symptoms and reports history of depression. Aliya denies SI, SH, HI, AVH. Aliya is active and engaged throughout session. Discussed presenting symptoms and efforts to manage identified symptoms, discussed boundaries and self care. Aliya is scheduled for follow up appointment 09/26/2020 at 1PM. Aliya is aware to call for earlier appointment if needed and to use ER for mental health emergencies. Next Appt Details Provider Name:Alanis Meek, 2020-09-11 02:20:00 PM, [address] [place], [address], Provider Name:Jacqui Mueller, 2020-09-26 01:00:00 PM, [address], [address] Provider Name:Pratik Bowens, 2020-11-06 02:00:00 PM, [address] [place], [address], Insurance Providers Payer Name Payer Address Payer Phone Insured Name Patient Relati onship to Insured Coverage Start Date Coverage End Date [place] [address] [address] [facility] [phone] ALIYA MCGUIRE self
--- OUTSIDE RECORDS SUMMARY | 2020-11-10 06:58 | CCD ---
Author Author [facility] Organization [facility] Address Unknown Phone Unavailable Care Team Providers Care Personal Banking Assistant Name Role Phone Pratik Bowens Unavailable PROBLEMS Type Condition ICD9-CM Code [id number] Code Onset Dates Condition S tatus SNOMED Code Notes Problem Arthritis M19.90 Active 1325021 Problem Depression with anxiety F41.8 Active 87243890 6 Problem Mixed hyperlipidemia E78.2 Active 975664617 Problem Type 2 diabetes mellitus without complications E11 .9 Active 331203526 Problem Insomnia, unspecified type G47.00 Active 30993 2001 Problem 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 Active 750090171 Problem correction (current) use of insulin Z79.4 Activ e 156488424 Problem Major depressive disorder, recurrent, moderate F33 .1 Active 177963579 Problem FELIX (obstructive sleep apnea) G47.33 Active 78 768354 Problem Hypertension, unspecified type I10 Active 5 2485620 Problem Arthritis of left knee M17.12 Active 995776538 0768315 Problem History of colon cancer Z85.038 Active 79416186 9 Problem Cigarette nicotine dependence without complication F17.210 Active 29884344 ALLERGIES No Known Allergies ENCOUNTERS from 1960 to 2020-09-28 Encounter Location Date Provider Diagnosis [facility] [address] [place] [address] Sep, Pratik Bowens IMMUNIZATIONS Vaccine Route Administration Date [...] Education Language: Question Answer Notes Languages spoken: Setswana Moravian: Question Answer Notes Moravian 14 Sikh Sexual Hx: Question Answer Notes Had sex [...] a day for 90 day(s) Sep, Active [place] 3 1000 MG 2 capsule Orally bid for 90 day(s) Active PROCEDURES No Information RESULTS No Results REASON FOR VISIT endoscopy MEDICAL (GENERAL) HISTORY Type Description Date Medical [...] Provider Name:Alanis Meek, 2020-10-24 02:40:00 PM, [address] [place], [address], Provider Name:Pratik Bowens, 2020-11-06 02:00:00 PM, [address] [place], [address], Insurance Providers Payer Name Payer Address Payer Phone Insured Name Patient Relati onship to Insured Coverage Start Date Coverage End Date SHE[place]IA [place] [address] [address] [facility] [phone] THOMAS MCGUIRE
--- OUTSIDE RECORDS SUMMARY | 2020-11-10 06:58 | CCD ---
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 Name Role Phone Pratik Bowens Unavailable PROBLEMS Type Condition ICD9-CM Code [id number] Code Onset Dates Condition S tatus W/U Status Risk SNOMED Code Notes Problem Arthritis M19.90 Active confirmed 4501192 Problem Depression with anxiety F41.8 Active confirmed 477966148 Problem Mixed hyperlipidemia E78.2 Active confirmed 199818260 Problem Type 2 diabetes mellitus without complications E11 .9 Active confirmed 302659328 Problem Insomnia, unspecified type G47.00 Active confirmed 623423429 Problem 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 Active confirmed 579829459 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 Activ e confirmed 068795170 Problem Major depressive disorder, recurrent, moderate F33 .1 Active confirmed 499250156 Problem FELIX (obstructive sleep apnea) G47.33 Active confirm ed 86222699 Problem Hypertension, unspecified type I10 Active confir med 37390163 Problem Arthritis of left knee M17.12 Active confirmed [id number] Problem History of colon cancer Z85.038 Active confirmed 618714383 Problem Cigarette nicotine dependence without complication F17.210 Active confirmed 35652547 ALLERGIES No Known Allergies ENCOUNTERS from 1960 to 2020-10-27 Encounter Location Date Provider Diagnosis [facility] [address] [place] [address], Pratik Bowens IMMUNIZATIONS Vaccine Route Administration Date Status Influenza (Pharmacy Given) Unknown Jun 21, 2019 Admin istered SOCIAL HISTORY Tobacco Use: Social History Observation Description Date Details (start date - stop date) Current Smoker Sex Assigned At : Social History Observation Description Sex Assigned At Unknown Education: Question Answer Notes Level of Education: High School Audit Question Answer Notes Interpretation: Alcohol Education Total Score: 3 Language: Question Answer Notes Languages spoken: Occitan Mandaeism: Question Answer Notes Mandaeism 14 Taoist Sexual Hx: Question Answer Notes Had sex [...] a day for 30 Days Sep, Active Keyser 3 1000 MG 2 capsule Orally bid for 90 day(s) Active May Have - as directed Daily for 999 days Oct, Active Irbesartan 300 MG 1 tablet Orally Once a day for 90 days Active AmLODIPine Besylate 10 MG TAKE 1 TABLET EVERY DAY for 90 Active MetFORMIN HCl ER 500 MG TAKE 1 TABLET TWICE DAILY for 90 Active NovoLog Flexpen 100 UNIT/ML 10 units Subcutaneous three time s daily for 90 days Active Chantix Starting Month Anatoly 0.5 MG X 11 & 1 MG X 42 as directed Orally as directed for 30 days Jul, Active Aspir-Low 81 MG 1 tablet Orally Once a day for 30 day(s) Active Citalopram Hydrobromide 10 MG TAKE 1 TABLET EVERY DAY for 90 Active TraZODone HCl 100 MG 2 tablet at bedtime Orally Once a day for 90 day s Active Januvia 100 MG 1 tablet Orally Once a day for 90 days Active Metformin HCl 1000 MG 1 tablet with a meal Orally Once a day for 30 day(s) Feb, Active Tresiba FlexTouch 100 UNIT/ML INJECT 35 UNITS SUBCUTAN EOUSLY EVERY EVENING for 85 Active Blood Glucose Test - as directed In Vitro once daily for 90 day( s) Oct, Active Celecoxib 200 MG 1 capsule with [...] Dx: I 10 for 999 days Jul, Citalopram Hydrobromide 10 MG TAKE 1 TABLET EVERY DAY for 90 May Have - as directed Daily for 999 days Oct, TraZODone HCl 100 MG 2 tablet at bedtime Orally Once a day for 9 0 days Chantix Starting Month Anatoly 0.5 MG X 11 & 1 MG X 42 as directed Orally as directed for 30 days Jul, Next Appt Details Provider Name:Jacqui Mueller, 2020-11-06 01:00:00 PM, [address] [facility], [facility] [address], [place], [address] Provider Name:Pratik Bowens, 2020-11-06 02:00:00 PM, [address] [place], [address], Provider Name:Alanis Fantasma, 2020-11-14 10:00:00 AM, [address] [place], [address], Insurance Providers Payer Name Payer Address Payer Phone Insured Name Patient Relati onship to Insured Coverage Start Date Coverage End Date [facility] [address] [address] [facility] [id number] THOMAS NAPIER
--- OUTSIDE RECORDS SUMMARY | 2020-11-10 06:58 | CCD ---
Author Author [facility] Organization [facility] Address Unknown Phone Unavailable Care Team Providers Care Marketing Services Specialist Name Role Phone Pratik Bowens Unavailable PROBLEMS Type Condition ICD9-CM Code [id number] Code Onset Dates Condition S tatus W/U Status Risk SNOMED Code Notes Problem Arthritis M19.90 Active confirmed 7888415 Problem Depression with anxiety F41.8 Active confirmed 268804268 Problem Mixed hyperlipidemia E78.2 Active confirmed 205494206 Problem Type 2 diabetes mellitus without complications E11 .9 Active confirmed 376587254 Problem Insomnia, unspecified type G47.00 Active confirmed 764064034 Problem 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 Active confirmed 131477057 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 Activ e confirmed 212062608 Problem Major depressive disorder, recurrent, moderate F33 .1 Active confirmed 407623922 Problem FELIX (obstructive sleep apnea) G47.33 Active confirm ed 10435044 Problem Hypertension, unspecified type I10 Active confir med 96477062 Problem Arthritis of left knee M17.12 Active confirmed 3963041556202345 Problem History of colon cancer Z85.038 Active confirmed 157063582 Problem Cigarette nicotine dependence without complication F17.210 Active confirmed 94187564 ALLERGIES No Known Allergies ENCOUNTERS from 1962 to 2020-10-26 Encounter Location Date Provider Diagnosis [facility] [address] [place] [address] Oct, Pratik Bowens IMMUNIZATIONS Vaccine Route Administration [...] Education Language: Question Answer Notes Languages spoken: Croatian Confucianism: Question Answer Notes Confucianism 14 Mormonism Sexual Hx: Question Answer Notes Had sex [...] a day for 30 Days Sep, Active [place] 3 1000 MG 2 capsule Orally bid [...] Details Provider Name:Jacqui Mueller, 2020-11-06 01:00:00 PM, [address] [facility], [facility] [address], [place], [address] Provider Name:Pratik Bowens, 2020-11-06 02:00:00 PM, [address] [place], [address], Provider Name:Alanis Fantasma, 2020-11-14 10:00:00 AM, [address] [place], [address], Insurance Providers Payer Name Payer Address Payer Phone Insured Name Patient Relati onship to Insured Coverage Start Date Coverage End Date [facility] [address] [address] [facility] [id number] THOMAS NAPIER
--- OUTSIDE RECORDS SUMMARY | 2020-11-10 06:59 | CCD ---
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 Name Role Phone Alan VALDEZ DPM Unavailable Unavailable Alan VALDEZ DPM Unavailable Unavailable Alan VALDEZ DPM Unavailable Unavailable Alan VALDEZ DPM Unavailable Unavailable Alan VALDEZ DPM Unavailable Unavailable Alan VALDEZ DPM Unavailable Unavailable Alan VALDEZ DPM Unavailable Unavailable Alan VALDEZ DPM Unavailable Unavailable Alan VALDEZ DPM Unavailable Unavailable Alan VALDEZ DPM Unavailable Unavailable Alan VALDEZ DPM Unavailable Unavailable Alan VALDEZ DPM Unavailable Unavailable Alan VALDEZ DPM Unavailable Unavailable MAJAlan IBARRAW DPM Unavailable Unavailable Alan VALDEZW DPM Unavailable Unavailable Alan VALDEZW DPM Unavailable Unavailable Alan VALDEZ DPM Unavailable Unavailable Alan VALDEZW DPM Unavailable Unavailable Alan VALDEZ DPM Unavailable Unavailable Alan VALDEZW DPM Unavailable Unavailable Alan VALDEZW DPM Unavailable Unavailable Alan VALDEZW DPM Unavailable Unavailable Alan VALDEZW DPM Unavailable Unavailable Alan VALDEZW DPM Unavailable Unavailable Alan VALDEZW DPM Unavailable Unavailable Alan VALDEZW DPM Unavailable Unavailable Alan VALDEZ EMMA DPM Unavailable Unavailable Alan VALDEZ EMMA DPM Unavailable Unavailable Alan VALDEZ EMMA DPM Unavailable Unavailable Alan VALDEZ EMMA DPM Unavailable Unavailable Re-disclosure Warning The records that you are about to access may contain information from federally-assisted alcohol or drug abuse programs. If such information is present, then the following federally mandated warning applies: This information has been disclosed to you from records protected by federal confidentiality rules (42 CFR part 2). The federal rules prohibit you from making any further disclosure of this information unless further disclosure is expressly permitted by the written consent of the person to whom it pertains or as otherwise permitted by 42 CFR part 2. A general authorization for the release of medical or other information is NOT sufficient for this purpose. The Federal rules restrict any use of the information to criminally investigate or prosecute any alcohol or drug abuse patient.The records that you are about to access may contain highly sensitive health information, the redisclosure of which is protected by Article 27-F of the [facility] Public Health law. If you continue you may have access to information: Regarding HIV / AIDS; Provided by facilities licensed or operated by the [facility] Office of Mental Health; or Provided by the [facility] Office for People With Developmental Disabilities. If such information is present, then the following [facility] mandated warning applies: This information has been disclosed to you from confidential records which are protected by state law. State law prohibits you from making any further disclosure of this information without the specific written consent of the person to whom it pertains, or as otherwise permitted by law. Any unauthorized further disclosure in violation of state law may result in a fine or penitentiary sentence or both. A general authorization for the release of medical or other information is NOT sufficient authorization for further disc losure. Encounters Encounter Providers Location Date Indications Data Source(s ) ([facility]) [facility] Scheduled Visit [address] [place] [address] 11/06/2020 12:00:00 AM EST eCW1 ([facility]) Unknown [address] [facility] [id number] 11/06/2020 12:00:00 AM EST eCW1 ([facility]) Unknown [address] [facility] [address] 10/25/2020 12:00:00 AM EST eCW1 ([facility]) Unknown [address] [facility] [address] 10/23/2020 12:00:00 AM EST eCW1 ([facility]) [place] [address] [facility] [address] 10/19/2020 12:00:00 AM EST eCW1 ([facility]) Unknown [address] [facility] [place] [address] 10/18/2020 12:00:00 AM EST eCW1 ([facility]) [place] [address] [facility] [address] 09/29/2020 12:00:00 AM EST eCW1 ([facility]) Unknown [address] [facility] [place] [address] 09/26/2020 12:00:00 AM EST eCW1 ([facility]) Unknown [address] [facility] [place] [address] 08/31/2020 12:00:00 AM EST eCW1 ([facility]) ([facility]) [facility] Scheduled Visit [address] [place] [phone] 08/29/2020 12:00:00 AM EST eCW1 ([facility]) Outpatient [address] [facility] [place] [address] 08/07/2020 12:00:00 AM EST eCW1 ([facility]) Outpatient [address] [facility] [place] [address] 08/07/2020 12:00:00 AM EST eCW1 ([facility]) Unknown [address] [facility] [place] [address] 06/22/2020 12:00:00 AM EDT eCW1 ([facility]) Unknown [address] [facility] [place] [address] 06/20/2020 12:00:00 AM EDT eCW1 [facility] Outpatient Attender: EMMA VALDEZ [facility] Office 02/20 10:15:00 AM EDT MEDENT ([facility] [place] [address] [facility] [address] 02/24/2020 12:00:00 AM EDT eCW1 ([facility]) [facility] [address] [facility] [address] 12/14/2019 12:00:00 AM EDT eCW1 ([facility]) [facility] [address] [facility] [address] 12/13/2019 12:00:00 AM EDT eCW1 ([facility]) [facility] [address] [facility] [address] 12/13/2019 12:00:00 AM EDT eCW1 ([facility]) [facility] [address] [facility] [address] 12/03/2019 12:00:00 AM EDT eCW1 ([facility]) [facility] [address] [facility] [address] 11/16/2019 12:00:00 AM EST eCW1 ([facility]) [facility] [address] [facility] [address] 10/07/2019 12:00:00 AM EST eCW1 ([facility]) [facility] [address] [facility] [address] 10/04/2019 12:00:00 AM EST eCW1 ([facility]) Medications Medication Brand Name Start Date Product Form Dose Route Admi nistrative Instructions Pharmacy Instructions Status Indications Reaction Description Data Source(s) May Have - UNK 10/25/2020 12:00:00 AM EST active May Have - eCW1 ([facility]) May Have - UNK 10/25/2020 12:00:00 AM EST active May Have - eCW1 ([facility]) May Have - UNK 10/25/2020 12:00:00 AM EST active May Have - eCW1 ([facility]) May Have - UNK 10/25/2020 12:00:00 AM EST active May Have - eCW1 ([facility]) Suprep Bowel Prep Kit Suprep Bowel Prep Kit 10/11/2020 12:00:00 AM EST active MEDENT ([facility], ) POLYETHYLENE GLYCOL 3350 142 MG/ML Oral Solution [Miralax] M iralax 10/11/2020 12:00:00 AM EST ORAL active M EDENT ([facility], ) Bisacodyl 5 MG Delayed Release Oral Tablet [Dulcolax] Dulcol ax 10/11/2020 12:00:00 AM EST ORAL active M EDENT ([facility], ) Chantix Starting Month Anatoly 0.5 MG X 11 & 1 MG X 42 Abeba ntix Starting Month Anatoly 0.5 MG X 11 & 1 MG X 42 08/07/2020 12:00:00 AM EST active Chantix Starting Month Anatoly 0.5 MG X 11 & 1 MG X 42 eCW1 ([facility]) Blood Pressure Kit - Blood Pressure Kit - 08/07/2020 12:00:00 AM EST active Blood Pressure Kit - eCW1 ([facility]) Chantix Starting Month Anatoly 0.5 MG X 11 & 1 MG X 42 Abeba ntix Starting Month Anatoly 0.5 MG X 11 & 1 MG X 42 08/07/2020 12:00:00 AM EST active Chantix Starting Month Anatoly 0.5 MG X 11 & 1 MG X 42 eCW1 ([facility]) Chantix Starting Month Anatoly 0.5 MG X 11 & 1 MG X 42 Abeba ntix Starting Month Anatoly 0.5 MG X 11 & 1 MG X 42 08/07/2020 12:00:00 AM EST active Chantix Starting Month Anatoly 0.5 MG X 11 & 1 MG X 42 eCW1 ([facility]) Chantix Starting Month Anatoly 0.5 MG X 11 & 1 MG X 42 Abeba ntix Starting Month Anatoly 0.5 MG X 11 & 1 MG X 42 08/07/2020 12:00:00 AM EST active Chantix Starting Month Anatoly 0.5 MG X 11 & 1 MG X 42 eCW1 ([facility]) Blood Pressure Kit - Blood Pressure Kit - 08/07/2020 12:00:00 AM EST active Blood Pressure Kit - eCW1 ([facility]) Blood Pressure Kit - Blood Pressure Kit - 08/07/2020 12:00:00 AM EST active Blood Pressure Kit - eCW1 ([facility]) Blood Pressure Kit - Blood Pressure Kit - 08/07/2020 12:00:00 AM EST active Blood Pressure Kit - eCW1 ([facility]) Chantix Starting Month Anatoly 0.5 MG X 11 & 1 MG X 42 Abeba ntix Starting Month Anatoly 0.5 MG X 11 & 1 MG X 42 08/07/2020 12:00:00 AM EST active Chantix Starting Month Anatoly 0.5 MG X 11 & 1 MG X 42 eCW1 ([facility]) Chantix Starting Month Anatoly 0.5 MG X 11 & 1 MG X 42 Abeba ntix Starting Month Anatoly 0.5 MG X 11 & 1 MG X 42 08/07/2020 12:00:00 AM EST active Chantix Starting Month Anatoly 0.5 MG X 11 & 1 MG X 42 eCW1 ([facility]) Blood Pressure Kit - Blood Pressure Kit - 08/07/2020 12:00:00 AM EST active Blood Pressure Kit - eCW1 ([facility]) Blood Pressure Kit - Blood Pressure Kit - 08/07/2020 12:00:00 AM EST active Blood Pressure Kit - eCW1 ([facility]) Chantix Starting Month Anatoly 0.5 MG X 11 & 1 MG X 42 Abeba ntix Starting Month Anatoly 0.5 MG X 11 & 1 MG X 42 08/07/2020 12:00:00 AM EST active Chantix Starting Month Anatoly 0.5 MG X 11 & 1 MG X 42 eCW1 ([facility]) Blood Pressure Kit - Blood Pressure Kit - 08/07/2020 12:00:00 AM EST active Blood Pressure Kit - eCW1 ([facility]) Chantix Starting Month Anatoly 0.5 MG X 11 & 1 MG X 42 Abeba ntix Starting Month Anatoly 0.5 MG X 11 & 1 MG X 42 08/07/2020 12:00:00 AM EST active Chantix Starting Month Anatoly 0.5 MG X 11 & 1 MG X 42 eCW1 ([facility]) Blood Pressure Kit - Blood Pressure Kit - 08/07/2020 12:00:00 AM EST active Blood Pressure Kit - eCW1 ([facility]) Blood Pressure Kit - Blood Pressure Kit - 08/07/2020 12:00:00 AM EST active Blood Pressure Kit - eCW1 ([facility]) Blood Pressure Kit - Blood Pressure Kit - 08/07/2020 12:00:00 AM EST active Blood Pressure Kit - eCW1 ([facility]) Chantix Starting Month Anatoly 0.5 MG X 11 & 1 MG X 42 Abeba ntix Starting Month Anatoly 0.5 MG X 11 & 1 MG X 42 08/07/2020 12:00:00 AM EST active Chantix Starting Month Anatoly 0.5 MG X 11 & 1 MG X 42 eCW1 ([facility]) Chantix Starting Month Anatoly 0.5 MG X 11 & 1 MG X 42 Abeba ntix Starting Month Anatoly 0.5 MG X 11 & 1 MG X 42 08/07/2020 12:00:00 AM EST active Chantix Starting Month Anatoly 0.5 MG X 11 & 1 MG X 42 eCW1 ([facility]) Blood Pressure Kit - Blood Pressure Kit - 08/07/2020 12:00:00 AM EST active Blood Pressure Kit - eCW1 ([facility]) Chantix Starting Month Anatoly 0.5 MG X 11 & 1 MG X 42 Abeba ntix Starting Month Anatoly 0.5 MG X 11 & 1 MG X 42 08/07/2020 12:00:00 AM EST active Chantix Starting Month Anatoly 0.5 MG X 11 & 1 MG X 42 eCW1 ([facility]) Blood Pressure Kit - Blood Pressure Kit - 08/07/2020 12:00:00 AM EST active Blood Pressure Kit - eCW1 ([facility]) Chantix Starting Month Anatoly 0.5 MG X 11 & 1 MG X 42 Abeba ntix Starting Month Anatoly 0.5 MG X 11 & 1 MG X 42 08/07/2020 12:00:00 AM EST active Chantix Starting Month Anatoly 0.5 MG X 11 & 1 MG X 42 eCW1 ([facility]) ammonium lactate 120 MG/ML Topical Cream Ammonium Lactate 03/09/2020 12:00:00 AM EDT active MEDENT ([facility] Metformin hydrochloride 1000 MG Oral Tablet Metformin HCl 1000 MG Metformin HCl 1000 MG 02/24/2020 12:00:00 AM EDT 1.0 {tablet_with_a_meal} active Metformin HCl 1000 MG eCW1 ([facility]) Metformin hydrochloride 1000 MG Oral Tablet Metformin HCl 1000 MG Metformin HCl 1000 MG 02/24/2020 12:00:00 AM EDT 1.0 {tablet_with_a_meal} active Metformin HCl 1000 MG eCW1 ([facility]) Metformin hydrochloride 1000 MG Oral Tablet Metformin HCl 1000 MG Metformin HCl 1000 MG 02/24/2020 12:00:00 AM EDT 1.0 {tablet_with_a_meal} active Metformin HCl 1000 MG eCW1 ([facility]) Metformin hydrochloride 1000 MG Oral Tablet Metformin HCl 1000 MG Metformin HCl 1000 MG 02/24/2020 12:00:00 AM EDT 1.0 {tablet_with_a_meal} active Metformin HCl 1000 MG eCW1 ([facility]) Metformin hydrochloride 1000 MG Oral Tablet Metformin HCl 1000 MG Metformin HCl 1000 MG 02/24/2020 12:00:00 AM EDT 1.0 {tablet_with_a_meal} active Metformin HCl 1000 MG eCW1 ([facility]) Metformin hydrochloride 1000 MG Oral Tablet Metformin HCl 1000 MG Metformin HCl 1000 MG 02/24/2020 12:00:00 AM EDT 1.0 {tablet_with_a_meal} active Metformin HCl 1000 MG eCW1 ([facility]) Metformin hydrochloride 1000 MG Oral Tablet Metformin HCl 1000 MG Metformin HCl 1000 MG 02/24/2020 12:00:00 AM EDT 1.0 {tablet_with_a_meal} active Metformin HCl 1000 MG eCW1 ([facility]) Metformin hydrochloride 1000 MG Oral Tablet Metformin HCl 1000 MG Metformin HCl 1000 MG 02/24/2020 12:00:00 AM EDT 1.0 {tablet_with_a_meal} active Metformin HCl 1000 MG eCW1 ([facility]) Metformin hydrochloride 1000 MG Oral Tablet Metformin HCl 1000 MG Metformin HCl 1000 MG 02/24/2020 12:00:00 AM EDT 1.0 {tablet_with_a_meal} active Metformin HCl 1000 MG eCW1 ([facility]) Metformin hydrochloride 1000 MG Oral Tablet Metformin HCl 1000 MG Metformin HCl 1000 MG 02/24/2020 12:00:00 AM EDT 1.0 {tablet_with_a_meal} active Metformin HCl 1000 MG eCW1 ([facility]) Metformin hydrochloride 1000 MG Oral Tablet Metformin HCl 1000 MG Metformin HCl 1000 MG 02/24/2020 12:00:00 AM EDT 1.0 {tablet_with_a_meal} active Metformin HCl 1000 MG eCW1 ([facility]) Metformin hydrochloride 1000 MG Oral Tablet Metformin HCl 1000 MG Metformin HCl 1000 MG 02/24/2020 12:00:00 AM EDT 1.0 {tablet_with_a_meal} active Metformin HCl 1000 MG eCW1 ([facility]) Metformin hydrochloride 1000 MG Oral Tablet Metformin HCl 1000 MG Metformin HCl 1000 MG 02/24/2020 12:00:00 AM EDT 1.0 {tablet_with_a_meal} active Metformin HCl 1000 MG eCW1 ([facility]) Metformin hydrochloride 1000 MG Oral Tablet Metformin HCl 1000 MG Metformin HCl 1000 MG 02/24/2020 12:00:00 AM EDT 1.0 {tablet_with_a_meal} active Metformin HCl 1000 MG eCW1 ([facility]) Metformin hydrochloride 1000 MG Oral Tablet Metformin HCl 1000 MG Metformin HCl 1000 MG 02/24/2020 12:00:00 AM EDT 1.0 {tablet_with_a_meal} active Metformin HCl 1000 MG eCW1 ([facility]) Blood Glucose Test - Blood Glucose Test - 11/16/2019 12:00:00 AM EST active Blood Glucose Test - eCW1 ([facility]) Blood Glucose Test - Blood Glucose Test - 11/16/2019 12:00:00 AM EST active Blood Glucose Test - eCW1 ([facility]) Blood Glucose Test - Blood Glucose Test - 11/16/2019 12:00:00 AM EST active Blood Glucose Test - eCW1 ([facility]) Blood Glucose Test - Blood Glucose Test - 11/16/2019 12:00:00 AM EST active Blood Glucose Test - eCW1 ([facility]) Blood Glucose Test - Blood Glucose Test - 11/16/2019 12:00:00 AM EST active Blood Glucose Test - eCW1 ([facility]) Blood Glucose Test - Blood Glucose Test - 11/16/2019 12:00:00 AM EST active Blood Glucose Test - eCW1 ([facility]) Blood Glucose Test - Blood Glucose Test - 11/16/2019 12:00:00 AM EST active Blood Glucose Test - eCW1 ([facility]) Blood Glucose Test - Blood Glucose Test - 11/16/2019 12:00:00 AM EST active Blood Glucose Test - eCW1 ([facility]) Blood Glucose Test - Blood Glucose Test - 11/16/2019 12:00:00 AM EST active Blood Glucose Test - eCW1 ([facility]) Blood Glucose Test - Blood Glucose Test - 11/16/2019 12:00:00 AM EST active Blood Glucose Test - eCW1 ([facility]) Blood Glucose Test - Blood Glucose Test - 11/16/2019 12:00:00 AM EST active Blood Glucose Test - eCW1 ([facility]) Blood Glucose Test - Blood Glucose Test - 11/16/2019 12:00:00 AM EST active Blood Glucose Test - eCW1 ([facility]) Blood Glucose Test - Blood Glucose Test - 11/16/2019 12:00:00 AM EST active Blood Glucose Test - eCW1 ([facility]) Blood Glucose Test - Blood Glucose Test - 11/16/2019 12:00:00 AM EST active Blood Glucose Test - eCW1 ([facility]) Blood Glucose Test - Blood Glucose Test - 11/16/2019 12:00:00 AM EST active as directed eCW1 ([facility]) Blood Glucose Test - Blood Glucose Test - 11/16/2019 12:00:00 AM EST active Blood Glucose Test - eCW1 ([facility]) Diclofenac Sodium 0.01 MG/MG Topical Gel Diclofenac So dium 1 % Diclofenac Sodium 1 % 10/04/2019 12:00:00 AM EST active Diclofenac Sodium 1 % eCW1 ([facility]) Citalopram 10 MG Oral Tablet Citalopram Hydrobromide 1 0 MG Citalopram Hydrobromide 10 MG 10/04/2019 12:00:00 AM EST 1.0 {tablet} active Citalopram Hydrobromide 10 MG eCW1 ([facility]) Citalopram 10 MG Oral Tablet Citalopram Hydrobromide 1 0 MG Citalopram Hydrobromide 10 MG 10/04/2019 12:00:00 AM EST 1.0 {tablet} active Citalopram Hydrobromide 10 MG eCW1 ([facility]) Diclofenac Sodium 0.01 MG/MG Topical Gel Diclofenac So dium 1 % Diclofenac Sodium 1 % 10/04/2019 12:00:00 AM EST active Diclofenac Sodium 1 % eCW1 ([facility]) Citalopram 10 MG Oral Tablet Citalopram Hydrobromide 1 0 MG Citalopram Hydrobromide 10 MG 10/04/2019 12:00:00 AM EST 1.0 {tablet} active Citalopram Hydrobromide 10 MG eCW1 ([facility]) celecoxib 200 MG Oral Capsule Celecoxib 200 MG Celecoxib 200 MG 10/04/2019 12:00:00 AM EST 1.0 {capsule_with_food} active Celecoxib 200 MG eCW1 ([facility]) Diclofenac Sodium 0.01 MG/MG Topical Gel Diclofenac So dium 1 % Diclofenac Sodium 1 % 10/04/2019 12:00:00 AM EST active Diclofenac Sodium 1 % eCW1 ([facility]) Albuterol Sulfate HFA 108 (90 Base) MCG/ACT Albuterol Sulfate HFA 108 (90 Base) MCG/ACT 10/04/2019 12:00:00 AM EST 1.0 {puff_as_needed} active Albuterol Sulfate HFA 108 (90 Base) MCG/ACT eCW1 ([facility]) Albuterol Sulfate HFA 108 (90 Base) MCG/ACT Albuterol Sulfate HFA 108 (90 Base) MCG/ACT 10/04/2019 12:00:00 AM EST 1.0 {puff_as_needed} active Albuterol Sulfate HFA 108 (90 Base) MCG/ACT eCW1 ([facility]) Albuterol Sulfate HFA 108 (90 Base) MCG/ACT Albuterol Sulfate HFA 108 (90 Base) MCG/ACT 10/04/2019 12:00:00 AM EST 1.0 {puff_as_needed} active Albuterol Sulfate HFA 108 (90 Base) MCG/ACT eCW1 ([facility]) Diclofenac Sodium 0.01 MG/MG Topical Gel Diclofenac So dium 1 % Diclofenac Sodium 1 % 10/04/2019 12:00:00 AM EST active Diclofenac Sodium 1 % eCW1 ([facility]) celecoxib 200 MG Oral Capsule Celecoxib 200 MG Celecoxib 200 MG 10/04/2019 12:00:00 AM EST 1.0 {capsule_with_food} active Celecoxib 200 MG eCW1 ([facility]) Albuterol Sulfate HFA 108 (90 Base) MCG/ACT Albuterol Sulfate HFA 108 (90 Base) MCG/ACT 10/04/2019 12:00:00 AM EST 1.0 {puff_as_needed} active Albuterol Sulfate HFA 108 (90 Base) MCG/ACT eCW1 ([facility]) Albuterol Sulfate HFA 108 (90 Base) MCG/ACT Albuterol Sulfate HFA 108 (90 Base) MCG/ACT 10/04/2019 12:00:00 AM EST 1.0 {puff_as_needed} active Albuterol Sulfate HFA 108 (90 Base) MCG/ACT eCW1 ([facility]) celecoxib 200 MG Oral Capsule Celecoxib 200 MG Celecoxib 200 MG 10/04/2019 12:00:00 AM EST 1.0 {capsule_with_food} active Celecoxib 200 MG eCW1 ([facility]) Albuterol Sulfate HFA 108 (90 Base) MCG/ACT Albuterol Sulfate HFA 108 (90 Base) MCG/ACT 10/04/2019 12:00:00 AM EST 1.0 {puff_as_needed} active Albuterol Sulfate HFA 108 (90 Base) MCG/ACT eCW1 ([facility]) Diclofenac Sodium 0.01 MG/MG Topical Gel Diclofenac So dium 1 % Diclofenac Sodium 1 % 10/04/2019 12:00:00 AM EST active Diclofenac Sodium 1 % eCW1 ([facility]) Citalopram 10 MG Oral Tablet Citalopram Hydrobromide 1 0 MG Citalopram Hydrobromide 10 MG 10/04/2019 12:00:00 AM EST 1.0 {tablet} active Citalopram Hydrobromide 10 MG eCW1 ([facility]) celecoxib 200 MG Oral Capsule Celecoxib 200 MG Celecoxib 200 MG 10/04/2019 12:00:00 AM EST 1.0 {capsule_with_food} active Celecoxib 200 MG eCW1 ([facility]) celecoxib 200 MG Oral Capsule Celecoxib 200 MG Celecoxib 200 MG 10/04/2019 12:00:00 AM EST active 1 capsul e with food eCW1 ([facility]) Albuterol Sulfate HFA 108 (90 Base) MCG/ACT Albuterol Sulfate HFA 108 (90 Base) MCG/ACT 10/04/2019 12:00:00 AM EST active 1 puff as needed eCW1 ([facility]) celecoxib 200 MG Oral Capsule Celecoxib 200 MG Celecoxib 200 MG 10/04/2019 12:00:00 AM EST 1.0 {capsule_with_food} active Celecoxib 200 MG eCW1 ([facility]) celecoxib 200 MG Oral Capsule Celecoxib 200 MG Celecoxib 200 MG 10/04/2019 12:00:00 AM EST 1.0 {capsule_with_food} active Celecoxib 200 MG eCW1 ([facility]) Diclofenac Sodium 0.01 MG/MG Topical Gel Diclofenac So dium 1 % Diclofenac Sodium 1 % 10/04/2019 12:00:00 AM EST active Diclofenac Sodium 1 % eCW1 ([facility]) Diclofenac Sodium 0.01 MG/MG Topical Gel Diclofenac So dium 1 % Diclofenac Sodium 1 % 10/04/2019 12:00:00 AM EST active Diclofenac Sodium 1 % eCW1 ([facility]) Citalopram 10 MG Oral Tablet Citalopram Hydrobromide 1 0 MG Citalopram Hydrobromide 10 MG 10/04/2019 12:00:00 AM EST 1.0 {tablet} active Citalopram Hydrobromide 10 MG eCW1 ([facility]) Albuterol Sulfate HFA 108 (90 Base) MCG/ACT Albuterol Sulfate HFA 108 (90 Base) MCG/ACT 10/04/2019 12:00:00 AM EST 1.0 {puff_as_needed} active Albuterol Sulfate HFA 108 (90 Base) MCG/ACT eCW1 ([facility]) celecoxib 200 MG Oral Capsule Celecoxib 200 MG Celecoxib 200 MG 10/04/2019 12:00:00 AM EST 1.0 {capsule_with_food} active Celecoxib 200 MG eCW1 ([facility]) Citalopram 10 MG Oral Tablet Citalopram Hydrobromide 1 0 MG Citalopram Hydrobromide 10 MG 10/04/2019 12:00:00 AM EST 1.0 {tablet} active Citalopram Hydrobromide 10 MG eCW1 ([facility] [facility] Diclofenac Sodium 0.01 MG/MG Topical Gel Diclofenac So dium 1 % Diclofenac Sodium 1 % 10/04/2019 12:00:00 AM EST active Diclofenac Sodium 1 % eCW1 ([facility]) Albuterol Sulfate HFA 108 (90 Base) MCG/ACT Albuterol Sulfate HFA 108 (90 Base) MCG/ACT 10/04/2019 12:00:00 AM EST 1.0 {puff_as_needed} active Albuterol Sulfate HFA 108 (90 Base) MCG/ACT eCW1 ([facility]) Diclofenac Sodium 0.01 MG/MG Topical Gel Diclofenac So dium 1 % Diclofenac Sodium 1 % 10/04/2019 12:00:00 AM EST active Diclofenac Sodium 1 % eCW1 ([facility]) Albuterol Sulfate HFA 108 (90 Base) MCG/ACT Albuterol Sulfate HFA 108 (90 Base) MCG/ACT 10/04/2019 12:00:00 AM EST 1.0 {puff_as_needed} active Albuterol Sulfate HFA 108 (90 Base) MCG/ACT eCW1 ([facility]) celecoxib 200 MG Oral Capsule Celecoxib 200 MG Celecoxib 200 MG 10/04/2019 12:00:00 AM EST 1.0 {capsule_with_food} active Celecoxib 200 MG eCW1 ([facility]) Albuterol Sulfate HFA 108 (90 Base) MCG/ACT Albuterol Sulfate HFA 108 (90 Base) MCG/ACT 10/04/2019 12:00:00 AM EST 1.0 {puff_as_needed} active Albuterol Sulfate HFA 108 (90 Base) MCG/ACT eCW1 ([facility]) Citalopram 10 MG Oral Tablet Citalopram Hydrobromide 1 0 MG Citalopram Hydrobromide 10 MG 10/04/2019 12:00:00 AM EST 1.0 {tablet} active Citalopram Hydrobromide 10 MG eCW1 ([facility]) celecoxib 200 MG Oral Capsule Celecoxib 200 MG Celecoxib 200 MG 10/04/2019 12:00:00 AM EST 1.0 {capsule_with_food} active Celecoxib 200 MG eCW1 ([facility]) Diclofenac Sodium 0.01 MG/MG Topical Gel Diclofenac So dium 1 % Diclofenac Sodium 1 % 10/04/2019 12:00:00 AM EST active Diclofenac Sodium 1 % eCW1 ([facility]) Albuterol Sulfate HFA 108 (90 Base) MCG/ACT Albuterol Sulfate HFA 108 (90 Base) MCG/ACT 10/04/2019 12:00:00 AM EST 1.0 {puff_as_needed} active Albuterol Sulfate HFA 108 (90 Base) MCG/ACT eCW1 ([facility]) Diclofenac Sodium 0.01 MG/MG Topical Gel Diclofenac So dium 1 % Diclofenac Sodium 1 % 10/04/2019 12:00:00 AM EST active as directed to hands eCW1 ([facility]) Citalopram 10 MG Oral Tablet Citalopram Hydrobromide 1 0 MG Citalopram Hydrobromide 10 MG 10/04/2019 12:00:00 AM EST 1.0 {tablet} active Citalopram Hydrobromide 10 MG eCW1 ([facility]) celecoxib 200 MG Oral Capsule Celecoxib 200 MG Celecoxib 200 MG 10/04/2019 12:00:00 AM EST 1.0 {capsule_with_food} active Celecoxib 200 MG eCW1 ([facility]) celecoxib 200 MG Oral Capsule Celecoxib 200 MG Celecoxib 200 MG 10/04/2019 12:00:00 AM EST 1.0 {capsule_with_food} active Celecoxib 200 MG eCW1 ([facility]) celecoxib 200 MG Oral Capsule Celecoxib 200 MG Celecoxib 200 MG 10/04/2019 12:00:00 AM EST 1.0 {capsule_with_food} active Celecoxib 200 MG eCW1 ([facility]) Diclofenac Sodium 0.01 MG/MG Topical Gel Diclofenac So dium 1 % Diclofenac Sodium 1 % 10/04/2019 12:00:00 AM EST active Diclofenac Sodium 1 % eCW1 ([facility]) Diclofenac Sodium 0.01 MG/MG Topical Gel Diclofenac So dium 1 % Diclofenac Sodium 1 % 10/04/2019 12:00:00 AM EST active Diclofenac Sodium 1 % eCW1 ([facility]) Diclofenac Sodium 0.01 MG/MG Topical Gel Diclofenac So dium 1 % Diclofenac Sodium 1 % 10/04/2019 12:00:00 AM EST active Diclofenac Sodium 1 % eCW1 ([facility]) Albuterol Sulfate HFA 108 (90 Base) MCG/ACT Albuterol Sulfate HFA 108 (90 Base) MCG/ACT 10/04/2019 12:00:00 AM EST 1.0 {puff_as_needed} active Albuterol Sulfate HFA 108 (90 Base) MCG/ACT eCW1 ([facility]) celecoxib 200 MG Oral Capsule Celecoxib 200 MG Celecoxib 200 MG 10/04/2019 12:00:00 AM EST 1.0 {capsule_with_food} active Celecoxib 200 MG eCW1 ([facility]) celecoxib 200 MG Oral Capsule Celecoxib 200 MG Celecoxib 200 MG 10/04/2019 12:00:00 AM EST 1.0 {capsule_with_food} active Celecoxib 200 MG eCW1 ([facility]) Citalopram 10 MG Oral Tablet Citalopram Hydrobromide 1 0 MG Citalopram Hydrobromide 10 MG 10/04/2019 12:00:00 AM EST acti ve 1 tablet eCW1 ([facility]) Albuterol Sulfate HFA 108 (90 Base) MCG/ACT Albuterol Sulfate HFA 108 (90 Base) MCG/ACT 10/04/2019 12:00:00 AM EST 1.0 {puff_as_needed} active Albuterol Sulfate HFA 108 (90 Base) MCG/ACT eCW1 ([facility]) Albuterol Sulfate HFA 108 (90 Base) MCG/ACT Albuterol Sulfate HFA 108 (90 Base) MCG/ACT 10/04/2019 12:00:00 AM EST 1.0 {puff_as_needed} active Albuterol Sulfate HFA 108 (90 Base) MCG/ACT eCW1 ([facility]) Diclofenac Sodium 0.01 MG/MG Topical Gel Diclofenac So dium 1 % Diclofenac Sodium 1 % 10/04/2019 12:00:00 AM EST active Diclofenac Sodium 1 % eCW1 ([facility]) celecoxib 200 MG Oral Capsule Celecoxib 200 MG Celecoxib 200 MG 10/04/2019 12:00:00 AM EST 1.0 {capsule_with_food} active Celecoxib 200 MG eCW1 ([facility]) Albuterol Sulfate HFA 108 (90 Base) MCG/ACT Albuterol Sulfate HFA 108 (90 Base) MCG/ACT 10/04/2019 12:00:00 AM EST 1.0 {puff_as_needed} active Albuterol Sulfate HFA 108 (90 Base) MCG/ACT eCW1 ([facility]) Diclofenac Sodium 0.01 MG/MG Topical Gel Diclofenac So dium 1 % Diclofenac Sodium 1 % 10/04/2019 12:00:00 AM EST active Diclofenac Sodium 1 % eCW1 ([facility]) Insurance Providers Payer name Policy type / Coverage type Policy ID Covered green party ID Covered green party's relationship to luis Policy Luis Plan Information HU[employer] GOLD [id number] SP [id number] [employer] GOLD [id number] SP [id number] O UNAVAILABLE UNAVAILA BLE MEDICARE [id number] SP [id number] [employer] PPO [id number] SP [id number] Problems, Conditions, and Diagnoses Code Display Name Description Problem Type Effective Dates Data Source(s) 29098165 Essential hypertension Essential hypertension Problem 09/26/2020 12:00:00 AM EST TOMEKA ([facility], ) F17.210 [id number] Cigarette nicotine dependence without com plication Problem 08/07/2020 12:00:00 AM EST eCW1 ([facility]) Z85.038 [id number] History of colon cancer Problem 08/07/2020 1 2:00:00 AM EST eCW1 ([facility]) M17.12 [id number] Arthritis of left knee Problem 1 10/07/2019 12:00:00 AM EST eCW1 ([facility]) F33.1 [id number] Major depressive disorder, recurrent, mod erate Problem 08/07/2020 12:00:00 AM EST eCW1 ([facility]) F41.8 [id number] Other specified anxiety disorders Problem 08/07/2020 12:00:00 AM EST eCW1 ([facility]) I10 Essential hypertension Hypertension, unspecified type Problem 02/24/2020 12:00:00 AM EDT eCW1 ([facility]) G47.33 [id number] FELIX (obstructive sleep apnea) Problem 10/04/2019 12:00:00 AM EST eCW1 ([facility]) Z79.4 [id number] jail (current) use of insulin Proble m 10/04/2019 12:00:00 AM EST eCW1 ([facility]) G47.00 [id number] Insomnia, unspecified type Problem 0 12:00:00 AM EST eCW1 ([facility]) E11.9 [id number] Type 2 diabetes mellitus without complica tions Problem 10/04/2019 12:00:00 AM EST eCW1 ([facility]) E78.2 [id number] Mixed hyperlipidemia Problem 10/04/2019 12:0 0:00 AM EST eCW1 ([facility]) F41.8 249462800 Depression with anxiety Problem 10/04/2019 1 2:00:00 AM EST eCW1 ([facility]) M19.90 6585007 Arthritis Problem 10/04/2019 12:00:00 AM ES T eCW1 ([facility]) Z79.4 [id number] jail (current) use of insulin Proble m 10/04/2019 12:00:00 AM EST eCW1 ([facility]) G47.33 [id number] FELIX (obstructive sleep apnea) Problem 10/04/2019 12:00:00 AM EST eCW1 ([facility]) M19.90 8699007 Arthritis Problem 10/04/2019 12:00:00 AM ES T eCW1 ([facility]) F41.8 [id number] Depression with anxiety Problem 10/04/2019 1 2:00:00 AM EST eCW1 ([facility]) E11.9 [id number] Type 2 diabetes mellitus without complica tions Problem 10/04/2019 12:00:00 AM EST eCW1 ([facility]) E78.2 [id number] Mixed hyperlipidemia Problem 10/04/2019 12:0 0:00 AM EST eCW1 ([facility]) G47.00 [id number] Insomnia, unspecified type Problem 0 12:00:00 AM EST eCW1 ([facility]) Surgeries/Procedures Procedure Description Date Indications Data Source(s) Influenza immunization administered or previously received 10/04/2019 12:00:00 AM EST eCW1 ([facility]) Results ID Date Data Source [id number] 11/05/2020 09:30:00 AM EST [facility] Name Value Range Interpretation Code Description Data Madelin rce(s) Supporting Document(s) SARS coronavirus 2 RNA Not Detected [facility] This lab was ordered by [facility] and reported by [facility]. ID Date Data Source [id number] 04/01/2020 12:02:00 PM EDT [facility] Name Value Range Interpretation Code Description Data Madelin rce(s) Supporting Document(s) SARS-CoV-2, RNA [facility] This lab was ordered by [facility] ID Date Data Source LIPID PANEL (CARDIAC RISK) 10/04/2019 12:00:00 AM EST eCW1 ( [facility]) Name Value Range Interpretation Code Description Data Madelin rce(s) Supporting Document(s) Cholesterol [Moles/volume] in Serum or Plasma 171 <200 CHOLESTEROL LEVEL eCW1 ([facility]) Triglyceride [Mass/volume] in Serum or Plasma by calculation 145 <150 TRIGLYCERIDES LEVEL eCW1 ([facility]) Cholesterol in HDL [Moles/volume] in Serum or Plasma 49 >40 HDL CHOLESTEROL eCW1 ([facility]) 3.489 <5 CHOLESTEROL RISK RATIO eCW1 ([facility]) Cholesterol in LDL [Mass/volume] in Serum or Plasma by calculation 93 <100 LDL CHOLESTEROL eCW1 ([facility]) 122 NON-HDL-C eCW1 ([facility]) ID Date Data Source [id number] 10/04/2019 12:00:00 AM EST eCW1 ([facility]) Name Value Range Interpretation Code Description Data Madelin rce(s) Supporting Document(s) Microalbumin/Creatinine [Mass Ratio] in Urine 232.0 CREATININE, URINE eCW1 ([facility]) Microalbumin/Creatinine [Ratio] in Urine 5.1 0.0-30.0 NOEMI/CREAT RATIO eCW1 ([facility]) Albumin/Creatinine [Mass Ratio] in Urine 11.9 MALB URINE SIEMENS eCW1 ([facility]) ID Date Data Source [id number] 10/04/2019 12:00:00 AM EST eCW1 ([facility]) Name Value Range Interpretation Code Description Data Madelin rce(s) Supporting Document(s) Hemoglobin A1c/Hemoglobin.total in Blood 7.5 HEMOGLOBIN A1c eCW1 ([facility]) ID Date Data Source Comprehensive Metabolic Profile (CMP) 10/04/2019 12:00:00 AM EST eCW1 ([facility]) Name Value Range Interpretation Code Description Data Madelin rce(s) Supporting Document(s) 0.82 0.55-1.30 CREATININE FOR GFR eCW1 ([facility]) 108 70-100 GLUCOSE, FASTING eCW1 ([facility]) 11 7-18 BLOOD UREA NITROGEN eCW1 ([facility]) > 60.0 >51 GLOMERULAR FILTRATION RATE eCW 1 ([facility]) 4.1 3.5-5.1 POTASSIUM SERUM eCW1 ([facility]) 140 136-145 SODIUM LEVEL eCW1 ([facility]) 104 98-107 CHLORIDE LEVEL eCW1 ([facility]) 31 21-32 CARBON DIOXIDE LEVEL eCW1 ([facility]) 9.5 8.5-10.1 CALCIUM LEVEL eCW1 ([facility]) 49 12-78 ALT/SGPT eCW1 ([facility]) 26 7-37 AST/SGOT eCW1 ([facility]) 46 45-117 ALKALINE PHOSPHATASE eCW1 ([facility]) 0.85 1.00-1.93 ALBUMIN/GLOBULIN RATIO eCW1 ([facility]) 7.6 6.4-8.2 TOTAL PROTEIN eCW1 ([facility]) 0.2 0.2-1.0 BILIRUBIN,TOTAL eCW1 ([facility]) 3.5 3.2-5.2 ALBUMIN eCW1 ([facility]) ID Date Data Source CBC with Differential 10/04/2019 12:00:00 AM EST eCW1 ([facility]) Name Value Range Interpretation Code Description Data Madelin rce(s) Supporting Document(s) 6.4 4.0-10.0 WHITE BLOOD COUNT eCW1 ([facility]) 4.56 4.00-5.40 RED BLOOD COUNT eCW1 ([facility]) 97.1 80.0-96.0 MEAN CORPUSCULAR VOLUME e CW1 ([facility]) 44.3 36.0-47.0 HEMATOCRIT eCW1 ([facility]) 13.6 12.0-15.5 HEMOGLOBIN eCW1 ([facility]) 14.3 11.5-14.5 RED CELL DISTRIBUTION WID TH eCW1 ([facility]) 30.7 32.0-36.5 MEAN CORPUSCULAR HGB CONC eCW1 ([facility]) 29.8 27.0-33.0 MEAN CORPUSCULAR HEMOGLOB IN eCW1 ([facility]) 8.5 0.0-5.0 MONO % eCW1 ([facility]) 48.0 36.0-66.0 NEUTROPHILS % eCW1 ([facility]) 40.5 24.0-44.0 LYMPH % eCW1 ([facility]) 261 150-450 PLATELET COUNT, AUTOMATED eCW1 ([facility]) 2.3 0.0-3.0 EOS % eCW1 ([facility]) 0.5 0.0-1.0 BASO % eCW1 ([facility]) 2.6 1.5-5.0 LYMPH # eCW1 ([facility]) 3.1 1.5-8.5 NEUTROPHILS # eCW1 ([facility]) 0.0 0.0-0.2 BASO # eCW1 ([facility]) 0.6 0.0-0.8 MONO # eCW1 ([facility]) 0.2 0.0-0.5 EOS # eCW1 ([facility]) Procedure Social History Code Duration Value Status Description Data Source(s ) Smoking 08/07/2020 12:00:00 AM EST Current Smoker completed Curre nt Smoker eCW1 ([facility]) Smoking 08/07/2020 12:00:00 AM EST Current Smoker completed Curre nt Smoker eCW1 ([facility]) Smoking 08/07/2020 12:00:00 AM EST Current Smoker completed Curre nt Smoker eCW1 ([facility]) Smoking 08/07/2020 12:00:00 AM EST Current Smoker completed Curre nt Smoker eCW1 ([facility]) Smoking 08/07/2020 12:00:00 AM EST Current Smoker completed Curre nt Smoker eCW1 ([facility]) Smoking 08/07/2020 12:00:00 AM EST Current Smoker completed Curre nt Smoker eCW1 ([facility]) Smoking 08/07/2020 12:00:00 AM EST Current Smoker completed Curre nt Smoker eCW1 ([facility]) Smoking 08/07/2020 12:00:00 AM EST Current Smoker completed Curre nt Smoker eCW1 ([facility]) Smoking 08/07/2020 12:00:00 AM EST Current Smoker completed Curre nt Smoker eCW1 ([facility]) Smoking 08/07/2020 12:00:00 AM EST Current Smoker completed Curre nt Smoker eCW1 ([facility]) Smoking 08/07/2020 12:00:00 AM EST Current Smoker completed Curre nt Smoker eCW1 ([facility]) Smoking 08/07/2020 12:00:00 AM EST Current Smoker completed Curre nt Smoker eCW1 ([facility]) Smoking 02/24/2020 12:00:00 AM EDT Current Smoker completed Curre nt Smoker eCW1 ([facility]) Smoking 02/24/2020 12:00:00 AM EDT Current Smoker completed Curre nt Smoker eCW1 ([facility]) Smoking 02/24/2020 12:00:00 AM EDT Current Smoker completed Curre nt Smoker eCW1 ([facility]) Vital Signs ID Date Data Source UNK Name Value Range Interpretation Code Description Data Source(s) Body surface area Derived from formula 2.06 m2 2.06 m2 [facility] ([facility]) Body weight 97.070 kg 97.070 kg [facility] ([facility]) [place] body weight 130 [lb_av] 130 [lb_av] [facility] ([facility]) Body mass index (BMI) [Ratio] 34.5 kg/m2 34.5 k g/m2 [facility] ([facility]) Body weight 214.00 [lb_av] 214.00 [lb_av] [facility] ([facility]) Body height 66 [in_i] 66 [in_i] [facility] ([facility]) 5'6" Diastolic blood pressure 82 mm[Hg] 82 mm[Hg] [facility] ([facility]) Systolic blood pressure 122 mm[Hg] 122 mm[Hg] [facility] ([facility]) Diastolic blood pressure 83 mm[Hg] 83 mm[Hg] eCW1 ([facility]) Systolic blood pressure 146 mm[Hg] 146 mm[Hg] e CW1 ([facility]) Body temperature 97.2 [degF] 97.2 [degF] eCW1 ( [facility]) Respiratory rate 18 /min 18 /min eCW1 ([facility]) Heart rate 75 /min 75 /min eCW1 ([facility]) Body mass index (BMI) [Ratio] 34.05 kg/m2 34.05 kg/m2 eCW1 ([facility]) Body height 66 [in_i] 66 [in_i] eCW1 ([facility]) Body weight 211 [lb_av] 211 [lb_av] eCW1 ([facility]) Body mass index (BMI) [Ratio] 33.7 kg/m2 33.7 k g/m2 [facility] ([facility] Heart rate 72 /min 72 /min [facility] ([facility] Diastolic blood pressure 75 mm[Hg] 75 mm[Hg] [facility] ([facility] Systolic blood pressure 190 mm[Hg] 190 mm[Hg] M [facility] ([facility] Body weight 209.00 [lb_av] 209.00 [lb_av] [facility] ([facility] Body height 66 [in_i] 66 [in_i] [facility] ([facility] 5'6" Diastolic blood pressure 75 mm[Hg] 75 mm[Hg] eCW1 ([facility]) Systolic blood pressure 118 mm[Hg] 118 mm[Hg] e CW1 ([facility]) Body temperature 97.3 [degF] 97.3 [degF] eCW1 ( [facility]) Respiratory rate 18 /min 18 /min eCW1 ([facility]) Heart rate 75 /min 75 /min eCW1 ([facility]) Body mass index (BMI) [Ratio] 34.38 kg/m2 34.38 kg/m2 eCW1 ([facility]) Body height 66 [in_i] 66 [in_i] eCW1 ([facility]) Body weight 213 [lb_av] 213 [lb_av] eCW1 ([facility]) Body mass index (BMI) [Ratio] 33.7 kg/m2 33.7 k g/m2 [facility] ([facility] Heart rate 72 /min 72 /min [facility] ([facility] Diastolic blood pressure 75 mm[Hg] 75 mm[Hg] [facility] ([facility] Systolic blood pressure 190 mm[Hg] 190 mm[Hg] M [facility] ([facility] Body weight 209.00 [lb_av] 209.00 [lb_av] [facility] T ([facility] Body height 66 [in_i] 66 [in_i] [facility] ([facility] 5'6" Systolic blood pressure 190 mm[Hg] 190 mm[Hg] e CW1 ([facility]) Body temperature 98.2 [degF] 98.2 [degF] eCW1 ( [facility]) Respiratory rate 18 /min 18 /min eCW1 ([facility]) Heart rate 72 /min 72 /min eCW1 ([facility]) Body mass index (BMI) [Ratio] 33.73 kg/m2 33.73 kg/m2 eCW1 ([facility]) Body height 66 [in_us] 66 [in_us] eCW1 ([facility]) Body weight Measured 209 [lb_av] 209 [lb_av] eC W1 ([facility]) Diastolic blood pressure 75 mm[Hg] 75 mm[Hg] eCW1 ([facility]) Patient Treatment Plan of Care Planned Activity Planned Date Details Description Data Source (s) January - 10/25/2020 12:00:00 AM EST e CW1 ([facility]) May Have - 10/25/2020 12:00:00 AM EST e CW1 ([facility]) May Have - 10/25/2020 12:00:00 AM EST e CW1 ([facility]) May Have - 10/25/2020 12:00:00 AM EST e CW1 ([facility]) Chantix Starting Month Anatoly 0.5 MG X 11 & 1 MG X 42 08/07/2020 12 :00:00 AM EST eCW1 ([facility]) Blood Pressure Kit - 08/07/2020 12:00:00 AM EST eCW1 ([facility]) Chantix Starting Month Anatoly 0.5 MG X 11 & 1 MG X 42 08/07/2020 12 :00:00 AM EST eCW1 ([facility]) Blood Pressure Kit - 08/07/2020 12:00:00 AM EST eCW1 ([facility]) Chantix Starting Month Anatoly 0.5 MG X 11 & 1 MG X 42 08/07/2020 12 :00:00 AM EST eCW1 ([facility]) Blood Pressure Kit - 08/07/2020 12:00:00 AM EST eCW1 ([facility]) Chantix Starting Month Anatoly 0.5 MG X 11 & 1 MG X 42 08/07/2020 12 :00:00 AM EST eCW1 ([facility]) Blood Pressure Kit - 08/07/2020 12:00:00 AM EST eCW1 ([facility]) Chantix Starting Month Anatoly 0.5 MG X 11 & 1 MG X 42 08/07/2020 12 :00:00 AM EST eCW1 ([facility]) Blood Pressure Kit - 08/07/2020 12:00:00 AM EST eCW1 ([facility]) Chantix Starting Month Anatoly 0.5 MG X 11 & 1 MG X 42 08/07/2020 12 :00:00 AM EST eCW1 ([facility]) Blood Pressure Kit - 08/07/2020 12:00:00 AM EST eCW1 ([facility]) Blood Pressure Kit - 08/07/2020 12:00:00 AM EST eCW1 ([facility]) Chantix Starting Month Anatoly 0.5 MG X 11 & 1 MG X 42 08/07/2020 12 :00:00 AM EST eCW1 ([facility]) Chantix Starting Month Anatoly 0.5 MG X 11 & 1 MG X 42 08/07/2020 12 :00:00 AM EST eCW1 ([facility]) Blood Pressure Kit - 08/07/2020 12:00:00 AM EST eCW1 ([facility]) Chantix Starting Month Anatoly 0.5 MG X 11 & 1 MG X 42 08/07/2020 12 :00:00 AM EST eCW1 ([facility]) Blood Pressure Kit - 08/07/2020 12:00:00 AM EST eCW1 ([facility]) Chantix Starting Month Anatoly 0.5 MG X 11 & 1 MG X 42 08/07/2020 12 :00:00 AM EST eCW1 ([facility]) Blood Pressure Kit - 08/07/2020 12:00:00 AM EST eCW1 ([facility]) Chantix Starting Month Anatoly 0.5 MG X 11 & 1 MG X 42 08/07/2020 12 :00:00 AM EST eCW1 ([facility]) Blood Pressure Kit - 08/07/2020 12:00:00 AM EST eCW1 ([facility]) Chantix Starting Month Anatoly 0.5 MG X 11 & 1 MG X 42 08/07/2020 12 :00:00 AM EST eCW1 ([facility]) Blood Pressure Kit - 08/07/2020 12:00:00 AM EST eCW1 ([facility]) Metformin hydrochloride 1000 MG Oral Tablet 02/24/2020 12:00:00 AM EDT eCW1 ([facility]) Metformin hydrochloride 1000 MG Oral Tablet 02/24/2020 12:00:00 AM EDT eCW1 ([facility]) Metformin hydrochloride 1000 MG Oral Tablet 02/24/2020 12:00:00 AM EDT eCW1 ([facility]) Blood Glucose Test - 11/16/2019 12:00:00 AM EST eCW1 ([facility]) Citalopram 10 MG Oral Tablet 10/04/2019 12:00:00 AM EST eCW1 ([facility]) Diclofenac Sodium 0.01 MG/MG Topical Gel 10/04/2019 12:00:00 AM EST eCW1 ([facility]) Citalopram 10 MG Oral Tablet 10/04/2019 12:00:00 AM EST eCW1 ([facility]) Diclofenac Sodium 0.01 MG/MG Topical Gel 10/04/2019 12:00:00 AM EST eCW1 ([facility]) Citalopram 10 MG Oral Tablet 10/04/2019 12:00:00 AM EST eCW1 ([facility]) Diclofenac Sodium 0.01 MG/MG Topical Gel 10/04/2019 12:00:00 AM EST eCW1 ([facility]) Citalopram 10 MG Oral Tablet 10/04/2019 12:00:00 AM EST eCW1 ([facility]) Diclofenac Sodium 0.01 MG/MG Topical Gel 10/04/2019 12:00:00 AM EST eCW1 ([facility]) Albuterol Sulfate HFA 108 (90 Base) MCG/ACT 10/04/2019 12:00:00 AM EST eCW1 ([facility]) celecoxib 200 MG Oral Capsule 10/04/2019 12:00:00 AM EST eCW1 ([facility])
[2020-11-10] MEDS ORDERED: NS 1,000 ML IV ONE (07:00)
[2020-11-10] MEDS ORDERED: LIDOCAINE 2% 100MG/5ML SDV (FOR ANES.) As Ordered ONE (07:42)
[2020-11-10] MEDS ORDERED: propofoL 200 MG/20 ML VIAL As Ordered ONE (07:42)
[2020-11-10] MEDS ORDERED: fentaNYL 100 MCG/2 ML INJECTION (J3010) As Ordered ONE (07:43)
--- NOTE | 2020-11-10 08:25 | ROOR ---
Patient Name: Aliya Pillai Procedure Date: 11/10/2020 8:10 AM Date of : 1960 Age: 60 Room: [facility] Gender: Female Note Status: Finalized Procedure: Upper GI endoscopy Indications: Heartburn Providers: Marcio Azul MD Referring MD: KOKI MALDONADO MD Requesting Provider: Medicines: Monitored Anesthesia Care Complications: No immediate complications. Procedure: Pre-Anesthesia Assessment: - Prior to the procedure, a History and Physical was performed, and patient medications and allergies were reviewed. The patient is competent. The risks and benefits of the procedure and the sedation options and risks were discussed with the patient. All questions were answered and informed consent was obtained. Patient identification and proposed procedure were verified by the physician, the nurse and the anesthesiologist in the procedure room. Mental Status Examination: alert and oriented. Airway Examination: normal oropharyngeal airway and neck mobility. Respiratory Examination: clear to auscultation. CV Examination: normal. Prophylactic Antibiotics: The patient does not require prophylactic antibiotics. Prior Anticoagulants: The patient has taken no previous anticoagulant or antiplatelet agents. ASA Grade Assessment: II - A patient with mild systemic disease. After reviewing the risks and benefits, the patient was deemed in satisfactory condition to undergo the procedure. The anesthesia plan was to use monitored anesthesia care (MAC). Immediately prior to administration of medications, the patient was re-assessed for adequacy to receive sedatives. The heart rate, respiratory rate, oxygen saturations, blood pressure, adequacy of pulmonary ventilation, and response to care were monitored throughout the procedure. The physical status of the patient was re-assessed after the procedure. The Endoscope was introduced through the mouth, and advanced to the second part of duodenum. The upper GI endoscopy was accomplished without difficulty. The patient tolerated the procedure well. Findings: The examined esophagus was normal. The Z-line was regular and was found 40 cm from the incisors. Patchy moderate inflammation characterized by erythema and granularity was found in the gastric body and in the gastric antrum. Biopsies were taken with a cold forceps for histology. Biopsies were taken with a cold forceps for Helicobacter pylori testing. Verification of patient identification for the specimen was done by the physician and nurse using the patient's name, date and medical record number. Estimated blood loss was minimal. The duodenal bulb and second portion of the duodenum were normal. Impression: - Normal esophagus. - Z-line regular, 40 cm from the incisors. - Gastritis. Biopsied. - Normal duodenal bulb and second portion of the duodenum. Recommendation: - Patient has a contact number available for emergencies. The signs and symptoms of potential delayed complications were discussed with the patient. Return to normal activities tomorrow. Written discharge instructions were provided to the patient. - High fiber diet. - Continue present medications. - Await pathology results. - Follow an antireflux regimen. - Telephone GI clinic for pathology results in 2 weeks. - Return to primary care physician. Procedure Code(s): --- Professional --- 11952, Esophagogastroduodenoscopy, flexible, transoral; with biopsy, single or multiple Diagnosis Code(s): --- Professional --- K29.70, Gastritis, unspecified, without bleeding R12, Heartburn CPT copyright 2019 [employer]. All rights reserved. The codes documented in this report are preliminary and upon tree killer review may be revised to meet current compliance requirements. Marcio Azul MD Marcio Azul MD 11/10/2020 8:24:44 AM Electronically signed by Marcio Azul MD Number of Addenda: 0 Note Initiated On: 11/10/2020 8:10 AM Estimated Blood Loss: Estimated blood loss was minimal.
--- NOTE | 2020-11-10 08:53 | ROOR ---
Patient Name: Aliya Pillai Procedure Date: 11/10/2020 8:11 AM Date of : 1960 Age: 60 Room: [facility] Gender: Female Note Status: Finalized Procedure: Colonoscopy Indications: High risk colon cancer surveillance: Personal history of colonic polyps Providers: Marcio Azul MD Referring MD: KOKI MALDONADO MD Requesting Provider: Medicines: Monitored Anesthesia Care Complications: No immediate complications. Procedure: Pre-Anesthesia Assessment: - Prior to the procedure, a History and Physical was performed, and patient medications and allergies were reviewed. The patient is competent. The risks and benefits of the procedure and the sedation options and risks were discussed with the patient. All questions were answered and informed consent was obtained. Patient identification and proposed procedure were verified by the physician, the nurse and the anesthesiologist in the procedure room. Mental Status Examination: normal. Airway Examination: normal oropharyngeal airway and neck mobility. Respiratory Examination: clear to auscultation. CV Examination: normal. Prophylactic Antibiotics: The patient does not require prophylactic antibiotics. Prior Anticoagulants: The patient has taken no previous anticoagulant or antiplatelet agents. ASA Grade Assessment: II - A patient with mild systemic disease. After reviewing the risks and benefits, the patient was deemed in satisfactory condition to undergo the procedure. The anesthesia plan was to use monitored anesthesia care (MAC). Immediately prior to administration of medications, the patient was re-assessed for adequacy to receive sedatives. The heart rate, respiratory rate, oxygen saturations, blood pressure, adequacy of pulmonary ventilation, and response to care were monitored throughout the procedure. The physical status of the patient was re-assessed after the procedure. The Colonoscope was introduced through the anus and advanced to the ileocolonic anastomosis. The colonoscopy was performed without difficulty. The patient tolerated the procedure well. The quality of the bowel preparation was good. The terminal ileum and the rectum were photographed. Scope insertion time was 2 minutes. Scope withdrawal time was 8 minutes. The total duration of the procedure was 10 minutes. Findings: The perianal and digital rectal examinations were normal. The donn-terminal ileum appeared normal. There was evidence of a prior functional end-to-end ileo-colonic anastomosis in the transverse colon. This was patent and was characterized by healthy appearing mucosa and visible sutures. The anastomosis was traversed. Three sessile polyps were found in the recto-sigmoid colon. The polyps were 2 to 4 mm in size. These polyps were removed with a cold biopsy forceps. Resection and retrieval were complete. Verification of patient identification for the specimen was done by the physician and nurse using the patient's name, date and medical record number. Estimated blood loss was minimal. Non-bleeding external and internal hemorrhoids were found during retroflexion. The hemorrhoids were medium-sized. Impression: - The examined portion of the ileum was normal. - Patent functional end-to-end ileo-colonic anastomosis, characterized by healthy appearing mucosa and visible sutures. - Three 2 to 4 mm polyps at the recto-sigmoid colon, removed with a cold biopsy forceps. Resected and retrieved. - Non-bleeding external and internal hemorrhoids. Recommendation: - Patient has a contact number available for emergencies. The signs and symptoms of potential delayed complications were discussed with the patient. Return to normal activities tomorrow. Written discharge instructions were provided to the patient. - High fiber diet. - Continue present medications. - Await pathology results. - Repeat colonoscopy in 3 - 5 years for surveillance based on pathology results and due to personal history of colon polyps in past Colonoscopy. - Telephone GI clinic for pathology results in 2 weeks. - Return to primary care physician. Procedure Code(s): --- Professional --- 03134, Colonoscopy, flexible; with biopsy, single or multiple Diagnosis Code(s): --- Professional --- Z86.010, Personal history of colonic polyps K64.8, Other hemorrhoids Z98.0, Intestinal bypass and anastomosis status K63.5, Polyp of colon CPT copyright 2019 [employer]. All rights reserved. The codes documented in this report are preliminary and upon loom checker review may be revised to meet current compliance requirements. Marcio Azul MD Marcio Azul MD 11/10/2020 8:53:05 AM Electronically signed by Marcio Azul MD Number of Addenda: 0 Note Initiated On: 11/10/2020 8:11 AM Estimated Blood Loss: Estimated blood loss was minimal.
[2020-11-10 09:13] VITALS: BP 150/84
== END 2020-11-10 09:16 | disposition home or self-care (01) ==
LOC: M OPP 06:52
PROVIDERS: ATTEND Internal Medicine Gastroenterology
DX: Z12.11 Encounter for screening for malignant neoplasm of colon (principal); Z86.010 Personal history of colon polyps; Z80.0 Family history of malignant neoplasm of digestive organs; R12 Heartburn; K63.5 Polyp of colon; K64.8 Other hemorrhoids; D13.1 Benign neoplasm of stomach; Z98.0 Intestinal bypass and anastomosis status; K29.70 Gastritis, unspecified, without bleeding; I10 Essential (primary) hypertension; E78.5 Hyperlipidemia, unspecified; E11.9 Type 2 diabetes mellitus without complications; M19.90 Unspecified osteoarthritis, unspecified site; F41.9 Anxiety disorder, unspecified; F32.9 Major depressive disorder, single episode, unspecified; G47.30 Sleep apnea, unspecified; F17.210 Nicotine dependence, cigarettes, uncomplicated; Z79.4 Long term (current) use of insulin; Z79.82 Long term (current) use of aspirin; Z79.899 Other long term (current) drug therapy; Z80.3 Family history of malignant neoplasm of breast; Z80.1 Family history of malignant neoplasm of trachea, bronchus and lung
CPT/HCPCS: 43239; 45380; 88305; J3010

== ENCOUNTER → 2020-11-14 | Outpatient (REF) | payer OTHER | LOC: M SFHCWAGY 13:36 | PROVIDERS: ATTEND Nurse Practitioner Women's Health | DX: Z12.4 Encounter for screening for malignant neoplasm of cervix (principal) | CPT/HCPCS: 87624; G0123 ==

== ENCOUNTER → 2020-11-14 | Outpatient (CLI) | payer OTHER ==
--- NOTE | 2020-11-28 14:38 | REPMRS ---
Patient History The patient states she had a clinical breast exam in 2020. Patient is postmenopausal and had first child at age 34. Family history of breast cancer and ovarian cancer in mother, breast cancer in maternal aunt, lung cancer in father. Digital Woman Screen Mammo: November 14, 2020 - Exam #: [id number] Bilateral CC and MLO view(s) were taken. Technologist: Jeannie Euceda, Technologist Prior study comparison: July 28, 2018, bilateral mammogram, performed at [facility]. July 23, 2017, bilateral mammogram, performed at [facility]. July 19, 2016, bilateral mammogram, performed at [facility]. FINDINGS: The breast tissue is almost entirely fat. The Volpara volumetric breast density category is: A. There has been no change in the appearance of the mammogram from the prior studies. There is no interval development of dominant mass, architectural distortion, or grouped microcalcification typical of malignancy. 3-D tomosynthesis shows no additional findings. Assessment: BI-RADS/ACR category 1 mammogram. Negative Mammogram. Recommendation Breast MRI of both breasts in 6 months. Routine screening mammogram of both breasts in 1 year (for women over age 40). This patient's [facility] Lifetime Breast Cancer RIsk is estimated at 28.3 %. Annual screening Breast MRI scanniing is recommended for patient's whose lifetime risk assessment is over 20%. This mammogram was interpreted with the aid of an FDA-approved computer-aided dectection system. Electronically Signed By: Matthias Romo MD 11/28/20 [id number]
== END ==
LOC: M WHC 10:08
PROVIDERS: ATTEND Family Medicine
DX: Z01.419 Encounter for gynecological examination (general) (routine) without abnormal findings (principal); Z12.31 Encounter for screening mammogram for malignant neoplasm of breast; Z78.0 Asymptomatic menopausal state; Z80.3 Family history of malignant neoplasm of breast; Z80.1 Family history of malignant neoplasm of trachea, bronchus and lung
CPT/HCPCS: 77063; 77067; 87624; G0123; G0463

== ENCOUNTER → 2020-12-12 | Outpatient (CLI) | payer OTHER ==
--- NOTE | 2020-12-12 17:04 | REP ---
INDICATION: D25.9 UTERINE LEIOMYOMA. COMPARISON: No comparison study.. TECHNIQUE: Transabdominal and transvaginal scanning were performed. FINDINGS: Uterine dimensions are normal at 7.9 cm in length by 7.8 cm in width. AP dimension is not well seen. Endometrial echo is not visualized. Neither ovary could be seen transabdominally or transvaginally. No free fluid is seen in the cul-de-sac. There is a large peripherally calcified oval-shaped lesion in the pelvis extending from the posterior mid uterus measuring 8.7 x 7.8 x 7.0 cm consistent with a peripherally calcified uterine fibroid. Much of the rest of the uterus is poorly visualized or exclude obscured. IMPRESSION: Exam quality is significantly restricted by patient body habitus bowel gas and calcific uterine myometrial shadowing. At least 1 large 8.7 cm peripherally calcified fibroid is suspected. Neither ovary could be seen.. <Electronically signed by Matthias Romo > 12/12/20 [id number]
== END ==
LOC: M WHC 12:41
PROVIDERS: ATTEND Nurse Practitioner Women's Health
DX: D25.9 Leiomyoma of uterus, unspecified (principal)

== ENCOUNTER → 2020-12-14 | Outpatient (CLI) | payer OTHER ==
--- NOTE | 2020-12-15 14:49 | SLEEPCENT ---
NOCTURNAL POLYSOMNOGRAPHY DATE: 12/14/2020 ORDERED BY: JULIAN Brooke Nocturnal polysomnography was performed for evaluation of sleep physiology in this patient with a prior history of sleep apnea and significant symptoms. 7 hours and 56 minutes of data were reviewed. There were 422 minutes of sleep identified. Sleep latency was prolonged at 26 minutes. REM latency was normal at 96 minutes. Sleep architecture improved substantially after the application of pressure therapy. Overall sleep efficiency was 90.2%. The electrocardiogram showed a sinus rhythm with an average heart rate of 60 beats per minute; rate range 50 to 80. EEG showed normal waveforms for wake and sleep. There were 260 respiratory events identified of 10 seconds in duration or greater for an apnea-hypopnea index of 37. The events were obstructive and not stage related. Having clearly established the presence of obstructive sleep apnea syndrome, testing was stopped shortly after midnight for the application of pressure therapy. The patient was fit with a ResMed AirFit F20 full face mask of medium size, 4 cm of water pressure were applied to the circuit and the lights were extinguished. Throughout the remaining hours of testing, pressure titration was performed to an optimal pressure of +9 with which, the patient slept through REM without respiratory event or oxygen desaturation in the supine posture. IMPRESSION: Obstructive sleep apnea syndrome (G47.33), apnea-hypopnea index 37. RECOMMENDATION: Nightly use of pressure therapy 9 cm of water.
== END ==
LOC: M SLEEP 20:00
PROVIDERS: ATTEND Physician Assistant
DX: G47.33 Obstructive sleep apnea (adult) (pediatric) (principal)

== ENCOUNTER → 2021-01-03 | Outpatient (REF) | payer OTHER ==
[2021-01-03 18:26] LABS: THYROID STIMULATING HORMONE 1.68 uIU/ML (0.358-3.740)
== END ==
LOC: M SFHCLERA 10:38
PROVIDERS: ATTEND Family Medicine
DX: R22.1 Localized swelling, mass and lump, neck (principal); Z79.899 Other long term (current) drug therapy

== ENCOUNTER → 2021-01-12 | Outpatient (CLI) | payer OTHER ==
--- NOTE | 2021-01-12 11:36 | REP ---
INDICATION: NODULE COMPARISON: None. TECHNIQUE: Rose scale and color evaluation of the thyroid gland using the linear high frequency transducer. FINDINGS: The thyroid gland is diffusely heterogeneous. Right thyroid lobe measures 4.3 x 1.6 x 1.3 cm. Isthmus measures 5 mm in width. Left thyroid lobe measures 4.1 x 1.6 x 1.2 cm. Further evaluation along the right-side of the neck at the point of swelling/palpable mass corresponds to a 2.1 x 0.6 x 1.0 cm lymph node. IMPRESSION: 1. Heterogeneous thyroid gland without focal abnormality. 2. Lymph node correlates to palpable mass. <Electronically signed by John Peña > 01/12/21 0159
== END ==
LOC: M RAD 10:24
PROVIDERS: ATTEND Family Medicine
DX: E04.1 Nontoxic single thyroid nodule (principal)

== ENCOUNTER → 2021-01-17 | Outpatient (CLI) | payer OTHER ==
--- NOTE | 2021-01-17 16:38 | REP ---
INDICATION: LOCALIZED ENLARGED LYMPH NODES. COMPARISON: None. FINDINGS: The superior mediastinal structures are midline. The cardiac silhouette is unremarkable in size, shape, and position. The diaphragmatic surfaces of the lungs are regular, and the costophrenic angles are clear. The pulmonary perez are clear. The imaged osseous structures are intact. IMPRESSION: There is no acute cardiopulmonary disease. If lymphadenopathy is of clinical concern then contrast enhanced CT is recommended. <Electronically signed by Mumtaz Posey > 01/17/21 1639
[2021-01-17 17:51] LABS: BASO % 0.4 % (0.0-1.0); EOS # 0.1 10^3/uL (0.0-0.5); EOS % 1.4 % (0.0-3.0); HEMATOCRIT 42.8 % (36.0-47.0); HEMOGLOBIN 13.2 g/dl (12.0-15.5); LYMPH # 2.7 10^3/uL (1.5-5.0); LYMPH % 36.8 % (24.0-44.0); MEAN CORPUSCULAR HEMOGLOBIN 29.8 pg (27.0-33.0); MEAN CORPUSCULAR HGB CONC 30.8 g/dl (32.0-36.5); MEAN CORPUSCULAR VOLUME 96.6 fl (80.0-96.0); MONO # 0.7 10^3/uL (0.0-0.8); MONO % 9.3 % (2.0-8.0); NEUTROPHILS # 3.8 10^3/uL (1.5-8.5); NEUTROPHILS % 51.8 % (36.0-66.0); PLATELET COUNT, AUTOMATED 300 10^3/uL (150-450); RED BLOOD COUNT 4.43 10^6/uL (4.00-5.40); WHITE BLOOD COUNT 7.3 10^3/uL (4.0-10.0)
[2021-01-17 18:08] LABS: ALBUMIN 3.5 GM/DL (3.2-5.2); ALT/SGPT 52 U/L (12-78); BILIRUBIN,TOTAL 0.2 MG/DL (0.2-1.0); BLOOD UREA NITROGEN 10 MG/DL (7-18); C REACTIVE PROTEIN QUANTITATIV 2.49 MG/DL (0.00-0.30); CARBON DIOXIDE LEVEL 32 MEQ/L (21-32); CHLORIDE LEVEL 107 MEQ/L (98-107); CREATININE FOR GFR 0.83 MG/DL (0.55-1.30); GLOMERULAR FILTRATION RATE > 60.0 (>51); GLUCOSE, FASTING 82 MG/DL (70-100); POTASSIUM SERUM 4.1 MEQ/L (3.5-5.1); SODIUM LEVEL 141 MEQ/L (136-145)
[2021-01-17 18:16] LABS: MONO REFLEX EBV COMP NEGATIVE (NEGATIVE)
[2021-01-17 19:01] LABS: ERYTHROCYTE SEDIMENTATION RATE 35 mm/hr (0-30)
[2021-01-19 16:09] LABS: EBV AB TO NUCLEAR ANTIGEN >600.0 U/mL (0.0-17.9); EBV VIRAL CAPSID AG IgG >600.0 U/mL (0.0-17.9); EBV VIRAL CAPSID AG IgM <36.0 U/mL (0.0-35.9)
[2021-01-20 23:07] LABS: CMV QUANT DNA PCR (PLASMA) Negative (Negative); TOXOPLASMA IgG ABY <3.0 IU/mL (0.0-7.1)
== END ==
LOC: M LAB 16:05
PROVIDERS: ATTEND Family Medicine
DX: R59.0 Localized enlarged lymph nodes (principal)
CPT/HCPCS: 36415; 71046; 80053; 85025; 85652; 86140; 86308; 86480; 86664; 86665; 86777; 86778; 87497; G0463

== ENCOUNTER → 2021-01-24 | Outpatient (CLI) | payer OTHER ==
[~2021-01-24] MED LIST changes: +LIDOCAINE 1% MDV 20ML VIAL As Ordered ONE
[2021-01-24 13:25] VITALS: BP 151/70
--- NOTE | 2021-01-24 16:14 | REP ---
INDICATION: RT SIDE CERVICAL LYMPHADENOPATHY. COMPARISON: None. TECHNIQUE: The procedure was performed under the direct supervision of Dr. Rose. The patient has a history of a 2.1 x 0.6 x 1 cm lymph node along the right side of the neck seen on a previous ultrasound dated 01/12/2021. The risks and benefits of the procedure were explained to the patient and informed consent was obtained. The right neck lymph node was localized using ultrasound guidance. The skin was prepped and draped in a sterile fashion. 1% lidocaine was used as a local anesthetic. Using ultrasound guidance 8 fine needle aspirations were obtained using 25 gauge needles. The patient tolerated the procedure well and there were no immediate complications. After the appropriate amount to monitor convalescence the patient was discharged from the department. FINDINGS: None IMPRESSION: Ultrasound-guided right neck lymph node biopsy. <Electronically signed by Neheimah Chun > 01/24/21 1608 <Electronically signed by Phil Rose > 01/24/21 161
== END ==
LOC: M IRPRO 11:47
PROVIDERS: ATTEND Family Medicine
DX: R59.0 Localized enlarged lymph nodes (principal)

== ENCOUNTER → 2021-03-07 | Outpatient (CLI) | payer OTHER ==
[~2021-03-07] MED LIST changes: -LIDOCAINE 1% MDV 20ML VIAL As Ordered ONE
--- NOTE | 2021-03-07 09:22 | REP ---
INDICATION: LOCALIZED ENLARGED LYMPH NODES OF CERVIX COMPARISON: None TECHNIQUE: Axial noncontrast images from the thoracic inlet to the upper abdomen with coronal and sagittal reformations. This CT examination was performed using the following dose reduction techniques: Automated exposure control, adjustment of mA and/or kv according to the patient's size, and use of iterative reconstruction technique. FINDINGS: The bilateral lung perez are well aerated, essentially symmetric and clear. No consolidation, suspicious nodule, or mass lesion is appreciated. No pleural effusion. No pneumothorax. Tracheobronchial tree is patent. No axillary, hilar, or mediastinal adenopathy. Further evaluation of the mediastinum demonstrates mild atherosclerotic changes to the thoracic aorta and coronary arteries without aortic aneurysm or cardiomegaly. No pericardial effusion. Surrounding musculoskeletal structures demonstrate age-related changes without acute osseous abnormality. IMPRESSION: No acute mediastinal or pleuroparenchymal process appreciated. <Electronically signed by John Peña > 03/07/21 0918
--- NOTE | 2021-03-07 09:30 | REP ---
INDICATION: LOCALIZED ENLARGED LYMPH NODES OF CERVIX COMPARISON: None TECHNIQUE: Axial noncontrast images from the lung bases to the pubic symphysis with coronal and sagittal reformations. This CT examination was performed using the following dose reduction techniques: Automated exposure control, adjustment of mA and/or kv according to the patient's size, and use of iterative reconstruction technique. FINDINGS: Lung bases are clear. Visualized heart and pericardium normal. Liver, spleen, pancreas, gallbladder, bilateral adrenal glands and kidneys are normal by noncontrast evaluation. Few right upper quadrant/peripancreatic and dorys hepatis lymph nodes appear slightly prominent and measure up to approximately 17 mm. These findings are nonspecific by current examination. The patient appears to be status post right hemicolectomy. No evidence for bowel obstruction or acute inflammatory process. Pelvis demonstrates significantly enlarged uterus with 9 cm rim calcified fibroid occupying most of the uterus. The bilateral adnexa are grossly normal. No obvious pelvic fluid or adenopathy is identified. Bladder is partially collapsed and grossly unremarkable. No ascites. No free air. No adenopathy. No focal inflammatory stranding. Abdominal aorta without aneurysm. Musculoskeletal structures are intact and without acute osseous abnormality. IMPRESSION: 1. Large 9 cm rim calcified central uterine fibroid. No associated pelvic free fluid, stranding, or adenopathy noted. 2. Few right upper quadrant lymph nodes are nonspecific but measure up to 17 mm. Follow-up contrast-enhanced CT of the abdomen and pelvis at 3-6 months may be warranted. 3. Evidence for prior right hemicolectomy. <Electronically signed by John Peña > 03/07/21 0981
== END ==
LOC: M RAD 08:26
PROVIDERS: ATTEND Family Medicine
DX: R59.0 Localized enlarged lymph nodes (principal)

== ENCOUNTER → 2021-05-07 | Outpatient (CLI) | payer MEDICARE ==
[2021-05-07 13:28] LABS: BLOOD UREA NITROGEN 13 MG/DL (7-18); CALCIUM LEVEL 8.9 MG/DL (8.5-10.1); CARBON DIOXIDE LEVEL 31 MEQ/L (21-32); CHLORIDE LEVEL 103 MEQ/L (98-107); CHOLESTEROL LEVEL 155 MG/DL (<200); CHOLESTEROL RISK RATIO 3.163 (<5); CREATININE FOR GFR 0.91 MG/DL (0.55-1.30); GLOMERULAR FILTRATION RATE > 60.0 (>51); GLUCOSE, FASTING 196 MG/DL (70-100); HDL CHOLESTEROL 49 MG/DL (>40); LDL CHOLESTEROL 81 MG/DL (<100); NON-HDL-C 106 MG/DL; POTASSIUM SERUM 3.9 MEQ/L (3.5-5.1); SODIUM LEVEL 139 MEQ/L (136-145); TRIGLYCERIDES LEVEL 125 MG/DL (<150)
[2021-05-07 13:30] LABS: MALB URINE SIEMENS 14.2 MG/L; MAU/CREAT RATIO 6.5 MCG/MG (0.0-30.0)
[2021-05-07 14:04] LABS: HEMOGLOBIN A1c 7.5 %
--- NOTE | 2021-05-07 21:21 | REP ---
INDICATION: LACERATION OF LEFT THUMB COMPARISON: None. TECHNIQUE: AP, lateral, bilateral oblique views left hand. FINDINGS: Generalized age-related changes are appreciated primarily involving the interphalangeal joints. Osseous structures are intact. No acute fracture or dislocation. Surrounding soft tissues are unremarkable and without subcutaneous emphysema or foreign body. IMPRESSION: Generalized age-related changes. No obvious acute injury. <Electronically signed by John Peña > 05/07/21 1232
== END ==
LOC: M LAB 11:57
PROVIDERS: ATTEND Family Medicine
DX: S61.012S Laceration without foreign body of left thumb without damage to nail, sequela (principal); E11.9 Type 2 diabetes mellitus without complications; F32.9 Major depressive disorder, single episode, unspecified; F41.9 Anxiety disorder, unspecified
CPT/HCPCS: 36415; 73130; 80048; 80061; 82043; 83036; 90834; G0463

== ENCOUNTER → 2021-06-14 | Outpatient (CLI) | payer MEDICARE ==
[2021-06-14 13:30] LABS: BLOOD UREA NITROGEN 11 MG/DL (7-18); CALCIUM LEVEL 9.3 MG/DL (8.5-10.1); CARBON DIOXIDE LEVEL 32 MEQ/L (21-32); CHLORIDE LEVEL 103 MEQ/L (98-107); CREATININE FOR GFR 0.72 MG/DL (0.55-1.30); GLOMERULAR FILTRATION RATE > 60.0 (>51); GLUCOSE, FASTING 130 MG/DL (70-100); SODIUM LEVEL 138 MEQ/L (136-145)
== END ==
LOC: M LAB 11:35
PROVIDERS: ATTEND Family Medicine
DX: E11.9 Type 2 diabetes mellitus without complications (principal)

== ENCOUNTER → 2021-06-18 | Outpatient (CLI) | payer MEDICARE ==
[~2021-06-18] MED LIST changes: +PROHANCE 279.3MG/ML 15ML VIAL As Ordered ONE; +PROHANCE 279.3MG/ML 5ML VIAL As Ordered ONE
--- NOTE | 2021-06-18 14:04 | REP ---
INDICATION: BREAST CA SCREENING. COMPARISON: Comparison mammography is from November 14, 2020. TECHNIQUE: Three [facility] MRI imaging was performed with a dedicated breast coil. Axial and coronal T1 and T2 weighted scans were accomplished including spin echo and STIR sequences. At this point in the exam however the patient became anxious and could not tolerate the remainder of the scans. No post gadolinium enhanced or pre gadolinium enhanced T1 weighted scans could be accomplished. The study is incomplete. FINDINGS: There is a minimal amount of fibroglandular tissue bilaterally corresponding with the mammographic pattern. There is no evidence of axillary lymphadenopathy. Pre contrast T1 and T2 weighted scans show no suspicious morphologic abnormality in either breast. There is no significant breast cystic change on T2 weighted scans. The study is incomplete as noted in the technique section above. No postcontrast images could be accomplished. IMPRESSION: Incomplete study. No suspicious abnormality seen. <Electronically signed by Matthias Romo > 06/18/21 1400
== END ==
LOC: M RAD 10:59
PROVIDERS: ATTEND Family Medicine
DX: R92.2 Inconclusive mammogram (principal); F32.9 Major depressive disorder, single episode, unspecified; F41.9 Anxiety disorder, unspecified
CPT/HCPCS: 90834; A9576; C8908

== ENCOUNTER → 2021-07-26 | Outpatient (CLI) | payer MEDICARE ==
[~2021-07-26] MED LIST changes: -PROHANCE 279.3MG/ML 15ML VIAL As Ordered ONE; -PROHANCE 279.3MG/ML 5ML VIAL As Ordered ONE
[2021-07-26 13:05] LABS: BLOOD UREA NITROGEN 13 MG/DL (7-18); CALCIUM LEVEL 9.1 MG/DL (8.5-10.1); CARBON DIOXIDE LEVEL 30 MEQ/L (21-32); CHLORIDE LEVEL 103 MEQ/L (98-107); CREATININE FOR GFR 0.84 MG/DL (0.55-1.30); GLOMERULAR FILTRATION RATE > 60.0 (>51); GLUCOSE, FASTING 98 MG/DL (70-100); POTASSIUM SERUM 4.3 MEQ/L (3.5-5.1); SODIUM LEVEL 139 MEQ/L (136-145)
== END ==
LOC: M LAB 12:01
PROVIDERS: ATTEND Family Medicine
DX: E11.9 Type 2 diabetes mellitus without complications (principal)

== ENCOUNTER → 2021-08-09 | Outpatient (CLI) | payer MEDICARE ==
[~2021-08-09] MED LIST changes: +PROHANCE 279.3MG/ML 15ML VIAL As Ordered ONE; +PROHANCE 279.3MG/ML 5ML VIAL As Ordered ONE
--- NOTE | 2021-08-09 14:47 | REP ---
INDICATION: BREAST CA SCREENING. COMPARISON: Comparison MRI study is from June 18, 2021. comparison mammography November 14, 2020. TECHNIQUE: Three [facility] MRI imaging was performed with a dedicated breast coil. Axial, coronal, and sagittal T1 and T2 weighted scans were obtained with and without fat saturation in the usual fashion. The study includes dynamically acquired post gadolinium-enhanced imaging with image subtraction. Maximum intensity projection and multi planar reformation imaging is included as well. This study is interpreted with the aid of [employer], an FDA approved computer aided detection (CAD) software program, on a dedicated breast MRI workstation. The gadolinium enhancement dose is 19 mL of intravenous ProHance. FINDINGS: There is a minimal amount of fibroglandular tissue bilaterally corresponding with the mammographic pattern. Breast parenchyma is predominantly fat replaced. There is minimal background parenchymal enhancement. There is no evidence of axillary lymphadenopathy or significant breast cystic change. High-resolution pre and post-contrast T1 and T2 weighted scans show no suspicious morphologic abnormality in either breast. Dynamically acquired sequential postcontrast images show no suspicious area of enhancement and washout kinetics in either breast to suggest malignancy. Subtraction images show no additional abnormality. IMPRESSION: BI-RADS category 1 negative bilateral breast MRI findings. <Electronically signed by Matthias Romo > 08/09/21 2460
== END ==
LOC: M RAD 07-30 08:04
PROVIDERS: ATTEND Family Medicine
DX: Z12.31 Encounter for screening mammogram for malignant neoplasm of breast (principal); Z53.8 Procedure and treatment not carried out for other reasons
CPT/HCPCS: A9576; C8908

== ENCOUNTER → 2021-09-12 | Outpatient (CLI) | payer MEDICARE ==
[~2021-09-12] MED LIST changes: -PROHANCE 279.3MG/ML 15ML VIAL As Ordered ONE; -PROHANCE 279.3MG/ML 5ML VIAL As Ordered ONE
== END ==
LOC: M LABSMTC 11:30
PROVIDERS: ATTEND Pediatrics
DX: Z20.822 Contact with and (suspected) exposure to COVID-19 (principal)
CPT/HCPCS: C9803; U0003

== ENCOUNTER → 2021-09-17 | Outpatient (CLI) | payer MEDICARE ==
[~2021-09-17] MED LIST changes: -OMEP-221; +OMEP40CA5
== END ==
LOC: M WHC 13:55
PROVIDERS: ATTEND Specialist
DX: D25.9 Leiomyoma of uterus, unspecified (principal)

== ENCOUNTER → 2021-10-31 | Outpatient (CLI) | payer MEDICARE ==
[2021-10-31 17:56] LABS: BLOOD UREA NITROGEN 14 MG/DL (7-18); CALCIUM LEVEL 8.9 MG/DL (8.5-10.1); CARBON DIOXIDE LEVEL 30 MEQ/L (21-32); CHLORIDE LEVEL 105 MEQ/L (98-107); CREATININE FOR GFR 0.87 MG/DL (0.55-1.30); GLOMERULAR FILTRATION RATE > 60.0 (>51); GLUCOSE, FASTING 105 MG/DL (70-100); POTASSIUM SERUM 4.2 MEQ/L (3.5-5.1); SODIUM LEVEL 141 MEQ/L (136-145)
[2021-10-31 20:41] LABS: HEMOGLOBIN A1c 6.4 %
== END ==
LOC: M LAB 16:14
PROVIDERS: ATTEND Family Medicine
DX: E11.9 Type 2 diabetes mellitus without complications (principal)

== ENCOUNTER → 2022-01-21 | Outpatient (CLI) | payer MEDICARE | LOC: M WHC 14:22 | PROVIDERS: ATTEND Family Medicine | DX: Z12.31 Encounter for screening mammogram for malignant neoplasm of breast (principal) ==

== ENCOUNTER → 2022-01-21 | Outpatient (CLI) | payer MEDICARE | LOC: M PLAIMG 13:50 | PROVIDERS: ATTEND Family Medicine | DX: M17.11 Unilateral primary osteoarthritis, right knee (principal); M19.071 Primary osteoarthritis, right ankle and foot ==

== ENCOUNTER 2022-02-25 16:19 | Emergency (ER) | payer MEDICARE ==
[~2022-02-25] VITALS: Ht 165.1 cm; Wt 94.1 kg
[2022-02-25 16:20] VITALS: BP 164/72
== END 2022-02-25 17:52 | disposition left against medical advice (07) ==
LOC: M ED 16:19
DX: Z53.21 Procedure and treatment not carried out due to patient leaving prior to being seen by health care provider (principal)

== ENCOUNTER → 2022-05-16 | Outpatient (REF) | payer MEDICARE ==
[2022-05-16 17:32] LABS: BLOOD UREA NITROGEN 9 MG/DL (7-18); CALCIUM LEVEL 9.4 MG/DL (8.5-10.1); CARBON DIOXIDE LEVEL 28 MEQ/L (21-32); CHLORIDE LEVEL 104 MEQ/L (98-107); CHOLESTEROL LEVEL 167 MG/DL (<200); CHOLESTEROL RISK RATIO 2.929 (<5); CREATININE FOR GFR 0.91 MG/DL (0.55-1.30); GLOMERULAR FILTRATION RATE > 60.0 (>51); GLUCOSE, FASTING 132 MG/DL (70-100); HDL CHOLESTEROL 57 MG/DL (>40); LDL CHOLESTEROL 90 MG/DL (<100); NON-HDL-C 110 MG/DL; POTASSIUM SERUM 4.5 MEQ/L (3.5-5.1); SODIUM LEVEL 137 MEQ/L (136-145); TRIGLYCERIDES LEVEL 100 MG/DL (<150)
== END ==
LOC: M WUC 16:11
PROVIDERS: ATTEND Family Medicine
DX: E11.9 Type 2 diabetes mellitus without complications (principal); E78.2 Mixed hyperlipidemia

== ENCOUNTER → 2022-06-13 | Outpatient (REF) | payer MEDICARE | LOC: M SFHCWAGY 13:13 | PROVIDERS: ATTEND Specialist | DX: Z01.419 Encounter for gynecological examination (general) (routine) without abnormal findings (principal); Z77.9 Other contact with and (suspected) exposures hazardous to health | CPT/HCPCS: 87624; G0123 ==

== ENCOUNTER → 2022-08-06 | Outpatient (CLI) | payer MEDICARE | LOC: M WHC 09:21 | PROVIDERS: ATTEND Family Medicine | DX: L98.9 Disorder of the skin and subcutaneous tissue, unspecified (principal); M79.601 Pain in right arm ==

== ENCOUNTER → 2022-10-03 | Outpatient (REF) | payer MEDICARE, OTHER | LOC: M LAB REF 16:04 | PROVIDERS: ATTEND Surgery | DX: L90.5 Scar conditions and fibrosis of skin (principal) ==

== ENCOUNTER → 2022-10-08 | Outpatient (CLI) | payer OTHER ==
[2022-10-08 15:48] LABS: MALB URINE SIEMENS < 3.0 MG/DL; MAU/CREAT RATIO 1.8 MCG/MG (0.0-30.0)
[2022-10-08 15:51] LABS: BLOOD UREA NITROGEN 13 MG/DL (9-23); CALCIUM LEVEL 8.8 MG/DL (8.3-10.6); CARBON DIOXIDE LEVEL 30 MMOL/L (20-31); CHLORIDE LEVEL 102 MMOL/L (98-107); GLOMERULAR FILTRATION RATE > 60.0 (>45); GLUCOSE, FASTING 85 MG/DL (74-106); POTASSIUM SERUM 4.6 MMOL/L (3.5-5.1); SODIUM LEVEL 138 MMOL/L (136-145)
[2022-10-08 15:59] LABS: HEMOGLOBIN A1c 6.9 % (4.0-6.0)
== END ==
LOC: M PLALAB 11:58
PROVIDERS: ATTEND Family Medicine
DX: E11.9 Type 2 diabetes mellitus without complications (principal)

== ENCOUNTER → 2022-10-15 | Outpatient (CLI) | payer OTHER ==
[~2022-10-15] MED LIST changes: +PROHANCE 279.3MG/ML 15ML VIAL ONE; +PROHANCE 279.3MG/ML 5ML VIAL ONE
== END ==
LOC: M PLAIMG 09:00
PROVIDERS: ATTEND Family Medicine
DX: Z12.39 Encounter for other screening for malignant neoplasm of breast (principal); N64.59 Other signs and symptoms in breast
CPT/HCPCS: A9576; C8908

== ENCOUNTER → 2022-10-16 | Outpatient (CLI) | payer OTHER ==
[~2022-10-16] MED LIST changes: -PROHANCE 279.3MG/ML 15ML VIAL ONE; -PROHANCE 279.3MG/ML 5ML VIAL ONE
== END ==
LOC: M SOG 07:59
PROVIDERS: ATTEND Orthopaedic Surgery Adult Reconstructive Orthopaedic Surgery
DX: M25.561 Pain in right knee (principal); M25.562 Pain in left knee

== ENCOUNTER → 2022-11-07 | Outpatient (CLI) | payer OTHER | LOC: M SOG 08:16 | PROVIDERS: ATTEND Orthopaedic Surgery | DX: M25.562 Pain in left knee (principal); M25.561 Pain in right knee ==

== ENCOUNTER → 2023-02-12 | Outpatient (CLI) | payer OTHER | LOC: M WHC 10:33 | PROVIDERS: ATTEND Family Medicine | DX: Z12.31 Encounter for screening mammogram for malignant neoplasm of breast (principal) ==

== ENCOUNTER → 2023-08-28 | Outpatient (REF) | payer OTHER ==
[~2023-08-28] MED LIST changes: +CELE0.09; -CELE1CAP9
== END ==
LOC: M SFHCPLAZ 11:31
PROVIDERS: ATTEND Nurse Practitioner Family
DX: L94.0 Localized scleroderma [morphea] (principal)

== ENCOUNTER → 2023-09-29 | Outpatient (CLI) | payer OTHER ==
[~2023-09-29] MED LIST changes: +IRBE300T25; -IRBE300T7
[2023-09-29 08:38] LABS: BASO % 0.3 % (0.0-1.0); EOS # 0.1 10^3/uL (0.0-0.5); EOS % 1.4 % (0.0-3.0); HEMOGLOBIN 10.8 g/dl (12.0-15.5); LYMPH # 2.3 10^3/uL (1.5-5.0); LYMPH % 35.1 % (24.0-44.0); MEAN CORPUSCULAR HEMOGLOBIN 25.7 pg (27.0-33.0); MEAN CORPUSCULAR VOLUME 85.7 fl (80.0-96.0); MONO # 0.6 10^3/uL (0.0-0.8); MONO % 9.1 % (2.0-8.0); NEUTROPHILS # 3.5 10^3/uL (1.5-8.5); NEUTROPHILS % 53.9 % (36.0-66.0); PLATELET COUNT, AUTOMATED 374 10^3/uL (150-450); WHITE BLOOD COUNT 6.5 10^3/uL (4.0-10.0)
[2023-09-29 09:01] LABS: ERYTHROCYTE SEDIMENTATION RATE 60 mm/hr (0-30)
[2023-09-29 09:09] LABS: CPK CREATINE PHOSPHOKINASE 265 U/L (34-145)
[2023-09-29 09:10] LABS: ALBUMIN 3.2 G/DL (3.2-5.2); ALKALINE PHOSPHATASE 43 U/L (46-116); ALT/SGPT 33 U/L (7.0-40); AST/SGOT 26 U/L (<34); BILIRUBIN,TOTAL 0.3 MG/DL (0.3-1.2); BLOOD UREA NITROGEN 16 MG/DL (9-23); CALCIUM LEVEL 8.9 MG/DL (8.3-10.6); CARBON DIOXIDE LEVEL 29 MMOL/L (20-31); CHLORIDE LEVEL 106 MMOL/L (98-107); CREATININE FOR GFR 0.77 MG/DL (0.55-1.30); GLOMERULAR FILTRATION RATE > 60.0 (>45); GLUCOSE, FASTING 144 MG/DL (74-106); POTASSIUM SERUM 4.5 MMOL/L (3.5-5.1); RHEUMATOID FACTOR QUANT < 3.5 IU/ML (<14); SODIUM LEVEL 140 MMOL/L (136-145); TOTAL PROTEIN 6.9 G/DL (5.7-8.2)
[2023-10-02 12:08] LABS: ANA (HEP2) Negative (.); ANTI DS-DNA AB Negative (Negative)
== END ==
LOC: M LAB 07:56
PROVIDERS: ATTEND Nurse Practitioner Family
DX: L94.0 Localized scleroderma [morphea] (principal); E11.9 Type 2 diabetes mellitus without complications

== ENCOUNTER 2023-12-09 11:55 | Day surgery (SDC) | payer OTHER ==
[~2023-12-09] VITALS: Ht 167.6 cm; Wt 91.2 kg
[~2023-12-09 11:55] MED LIST changes: +AMBI10TA PO; +MIRA3350 PO; +PROZ10CA7 PO
[2023-12-09] MEDS ORDERED: LIDOCAINE 2% 100MG/5ML SDV (FOR ANES.) As Ordered ONE (12:57)
[2023-12-09] MEDS ORDERED: fentaNYL 100 MCG/2 ML INJECTION As Ordered ONE (12:57)
[2023-12-09] MEDS ORDERED: propofoL 500 MG/50 ML VIAL As Ordered ONE (12:57)
[2023-12-09] MEDS: NS 1,000 ML IV ONE (13:05)
[2023-12-09 15:00] VITALS: TEMP 97.1
[2023-12-09 15:17] VITALS: BP 120/65; O2SAT 100
== END 2023-12-09 15:50 | disposition home or self-care (01) ==
LOC: M OPP 11:55
PROVIDERS: ATTEND Internal Medicine Gastroenterology
DX: Z86.010 Personal history of colon polyps (principal); K64.8 Other hemorrhoids; K64.4 Residual hemorrhoidal skin tags; Z98.0 Intestinal bypass and anastomosis status; K31.89 Other diseases of stomach and duodenum; R10.13 Epigastric pain; R14.0 Abdominal distension (gaseous); E11.9 Type 2 diabetes mellitus without complications; G47.30 Sleep apnea, unspecified; Z99.89 Dependence on other enabling machines and devices; F17.200 Nicotine dependence, unspecified, uncomplicated; Z79.02 Long term (current) use of antithrombotics/antiplatelets; Z79.4 Long term (current) use of insulin; Z79.51 Long term (current) use of inhaled steroids; Z79.82 Long term (current) use of aspirin; Z79.811 Long term (current) use of aromatase inhibitors; Z79.891 Long term (current) use of opiate analgesic; Z79.899 Other long term (current) drug therapy
CPT/HCPCS: 43239; 88305; G0105; J3010

== ENCOUNTER → 2024-01-14 | Outpatient (REF) | payer OTHER ==
[2024-01-14 15:55] LABS: ALBUMIN 3.1 G/DL (3.2-5.2); ALKALINE PHOSPHATASE 57 U/L (46-116); ALT/SGPT 46 U/L (7.0-40); AST/SGOT 26 U/L (<34); BILIRUBIN,TOTAL 0.3 MG/DL (0.3-1.2); BLOOD UREA NITROGEN 11 MG/DL (9-23); CALCIUM LEVEL 9.1 MG/DL (8.3-10.6); CARBON DIOXIDE LEVEL 30 MMOL/L (20-31); CHLORIDE LEVEL 104 MMOL/L (98-107); CREATININE FOR GFR 0.71 MG/DL (0.55-1.30); GLOMERULAR FILTRATION RATE > 60.0 (>45); GLUCOSE, FASTING 124 MG/DL (74-106); POTASSIUM SERUM 4.2 MMOL/L (3.5-5.1); SODIUM LEVEL 138 MMOL/L (136-145); TOTAL PROTEIN 7.1 G/DL (5.7-8.2)
[2024-01-14 16:00] LABS: HEMATOCRIT 33.2 % (36.0-47.0); HEMOGLOBIN 9.6 g/dl (12.0-15.5); MEAN CORPUSCULAR HEMOGLOBIN 23.3 pg (27.0-33.0); MEAN CORPUSCULAR HGB CONC 28.9 g/dl (32.0-36.5); MEAN CORPUSCULAR VOLUME 80.6 fl (80.0-96.0); PLATELET COUNT, AUTOMATED 352 10^3/uL (150-450); RED BLOOD COUNT 4.12 10^6/uL (4.00-5.40); WHITE BLOOD COUNT 7.8 10^3/uL (4.0-10.0)
[2024-01-14 16:16] LABS: HEMOGLOBIN A1c 7.1 % (4.0-6.0)
[2024-01-14 16:56] LABS: ATYPICAL LYMPH 8 % (0-5); BASOPHILS 2 % (0-1); EOSINOPHILS 1 % (0-3); LYMPHOCYTES 38 % (16-44); MONOCYTES 6 % (0-5); NEUTROPHILS 45 % (28-66); PLATELET ESTIMATE NORMAL (NORMAL)
[2024-01-14 16:57] LABS: ANISOCYTOSIS 1+
== END ==
LOC: M LABWUC 14:21
PROVIDERS: ATTEND Family Medicine
DX: Z01.818 Encounter for other preprocedural examination (principal); E11.9 Type 2 diabetes mellitus without complications

== ENCOUNTER → 2024-02-20 | Outpatient (CLI) | payer OTHER | LOC: M WHC 12:08 | PROVIDERS: ATTEND Specialist | DX: Z12.31 Encounter for screening mammogram for malignant neoplasm of breast (principal) ==

== ENCOUNTER → 2024-02-20 | Outpatient (REF) | payer OTHER ==
[2024-02-24 15:09] LABS: HPV APTIMA Negative (Negative)
== END ==
LOC: M SFHCWAGY 12:35
PROVIDERS: ATTEND Specialist
DX: Z12.4 Encounter for screening for malignant neoplasm of cervix (principal)
CPT/HCPCS: 87624; G0123

== ENCOUNTER → 2024-02-20 | Outpatient (CLI) | payer OTHER | LOC: M WHC 10:47 | PROVIDERS: ATTEND Specialist | DX: Z12.31 Encounter for screening mammogram for malignant neoplasm of breast (principal); Z80.3 Family history of malignant neoplasm of breast; Z80.41 Family history of malignant neoplasm of ovary ==

== ENCOUNTER → 2024-03-24 | Outpatient (REF) | payer OTHER | LOC: M SFHCPLAZ 14:02 | PROVIDERS: ATTEND Student in an Organized Health Care Education/Training Program | DX: D64.9 Anemia, unspecified (principal) ==

== ENCOUNTER → 2024-03-30 | Outpatient (CLI) | payer OTHER ==
[2024-03-30 10:38] LABS: BASO % 0.6 % (0.0-1.0); EOS # 0.1 10^3/uL (0.0-0.5); EOS % 1.5 % (0.0-3.0); HEMOGLOBIN 9.7 g/dl (12.0-15.5); LYMPH # 2.4 10^3/uL (1.5-5.0); LYMPH % 35.5 % (24.0-44.0); MEAN CORPUSCULAR HEMOGLOBIN 22.4 pg (27.0-33.0); MEAN CORPUSCULAR HGB CONC 28.5 g/dl (32.0-36.5); MEAN CORPUSCULAR VOLUME 78.3 fl (80.0-96.0); MONO # 0.6 10^3/uL (0.0-0.8); MONO % 8.5 % (2.0-8.0); NEUTROPHILS # 3.7 10^3/uL (1.5-8.5); NEUTROPHILS % 53.8 % (36.0-66.0); PLATELET COUNT, AUTOMATED 354 10^3/uL (150-450); RED BLOOD COUNT 4.34 10^6/uL (4.00-5.40); WHITE BLOOD COUNT 6.8 10^3/uL (4.0-10.0)
[2024-03-30 10:41] LABS: HEMATOCRIT 34.4 % (36.0-47.0); PERCENT SATURATION 5.3 % (13.2-45.0)
== END ==
LOC: M WUC 08:24
DX: D64.9 Anemia, unspecified (principal)